=== PATIENT | female | born 1965 | race Caucasian/White ===

== ENCOUNTER 2016-10-20 20:42 | Inpatient (IN) | payer BC, MEDICARE ==
[~2016-10-20] VITALS: Ht 149.9 cm; Wt 57.4 kg
[~2016-10-20 20:42] MED LIST: ACET325T9 PO; ALPR1TAB6 PO; AMLO5TAB2 PO; ASCO100T4 PO; ASCO500T3 PO; ASPI-39 PO; ASPI81TA2 PO; BUPR150T8 PO; CEFP100T PO; CEFP200T PO; CHOL500015 PO; CIPR250T PO; CIPR250T30 PO; CLIN-44 PO; CLON1TAB3 PO; DARB10SY IJ; DEXA4TAB PO; DIAZ5TAB4 PO; DOCU-27 PO; ESCI10TA PO; ESCI20TA PO; FERR-26 PO; FERR325T72 PO; FLUC100T FT; GABA-585 PO; GABA-586 PO; HYDR-2678 PO; LACT1CAP6 PO; LEVE500T56 PO; LIDO30CR TP; LIDO700A4 TD; METH10TA2 PO; METR250T PO; MORP30TA83 PO; MULT-55 PO; OMEP40CA5 PO; ONDA8TAB15 PO; ONDA8TAB9 PO; OXYB10TA PO; OXYC-323 PO; OXYC10TA PO; OXYC10TA32 PO; OXYC5TAB PO; OXYM10TA22 PO; OXYM20TA10 PO; OXYM5TAB18 PO; PRAV40TA2 PO; PROAIR HFA8.5 GM IH; PROAIR HFA8.5 GM INH; PROM25TA10 PO; PROVENTIL HFA6.7 GM IH; SENN-22 PO; SUMA100T4 PO; SUMA4PEN2 SQ; TIOT18CA IH
[2016-10-20 22:20] VITALS: BP 138/78
[2016-10-20] MEDS ORDERED: ALPRAZOLAM 0.5 MG TABLET PO PRN (23:30)
[2016-10-20] MEDS ORDERED: SUMATRIPTAN SUCCINATE 100 MG TABLET. PO PRN (23:30)
[2016-10-21] VITALS (14 sets, daily range): BP systolic 123–146; BP diastolic 70–87
[2016-10-21] MEDS: MORPHINE SULFATE 2 MG/ML DISP.SYRIN. IV PRN ×5 (00:01→19:21)
[2016-10-21] MEDS: ACETAMINOPHEN 325 MG TABLET. PO PRN ×2 (01:30→08:18)
[2016-10-21 03:21] LABS: BASO # 0.1 x10^3/uL (0.0-0.2); BASO % 1 % (0-3); EOS % 1 % (0-3); HEMATOCRIT 14.6 % (36.0-47.0); HEMOGLOBIN 4.9 g/dL (12.0-15.5); LYMPH # 1.1 x10^3/uL (1.0-4.8); LYMPH % 14 % (24-48); MEAN CORPUSCULAR HEMOGLOBIN 33 pg (25-35); MEAN CORPUSCULAR HGB CONC 34 g/dL (31-37); MEAN CORPUSCULAR VOLUME 98 fL (79-100); MONO % 8 % (0-9); NEUT % 76 % (31-73); PLATELET COUNT 77 x10^3/uL (140-400); RED BLOOD COUNT 1.48 x10^6/uL (3.50-5.40); RED CELL DISTRIBUTION WIDTH 18.4 % (11.5-14.5); WHITE BLOOD COUNT 7.8 x10^3/uL (4.0-11.0)
[2016-10-21 03:23] LABS: ALBUMIN 2.9 g/dL (3.4-5.0); CALCIUM 8.7 mg/dL (8.5-10.1); GFR 9.1; PHOSPHORUS 3.3 mg/dL (2.6-4.7); POTASSIUM 3.9 mmol/L (3.5-5.1)
[2016-10-21] MEDS: IPRATRPIUM/ALBUTEROL 0.5/2.5MG 3 ML NEBU. NEB SCH ×4 (07:19→20:15)
[2016-10-21] MEDS: PANTOPRAZOLE 40 MG TABLET. PO SCH (08:18)
[2016-10-21] MEDS: LEVETIRACETAM 500 MG TABLET PO SCH ×2 (08:18→20:07)
[2016-10-21] MEDS: AMLODIPINE BESYLATE 5 MG TABLET PO SCH ×2 (08:19→20:07)
--- NOTE | 2016-10-21 08:49 | PDOC2 ---
CONSULT Date of Consult Date of Consult DATE: 10/21/16 TIME: 08:38 Reason for Consult Reason for Consult: ESRD Referring Physician Referring Physician: Shad Source Source: Chart review, Patient History of Present Illness Reason for Visit: as dictated Past Medical History Cardiovascular: HTN, Hyperlipidemia Pulmonary: COPD CENTRAL NERVOUS SYSTEM: Migraine GI: GERD Heme/Onc: Anemia NOS, Cancer Hepatobiliary: No pertinent hx Psych: Anxiety, Depression Musculoskeletal: Osteoarthritis Renal/: Chronic renal failure Endocrine: Diabetes, Hyperparathyroidism Past Surgical History Past Surgical History: Tonsillectomy, Hysterectomy, Other Family History Family History: Hypertension Social History Quit ALCOHOL: none Drugs: None Lives: with Family Current Medications Current Medications Current Medications Acetaminophen (Tylenol) 650 mg PRN Q6HRS PRN PO MILD PAIN / TEMP Last administered on 10/21/16 08:18; Start 10/20/16 at 23:15 Morphine Sulfate 2 mg PRN Q2HR PRN IV SEVERE PAIN Last administered on 08:18; Start 10/20/16 at 23:15 Albuterol/ Ipratropium (Duoneb) 3 ml RTQID NEB Last administered on 10/21/16 07:19; Start 10/21/16 at 08:00 Ondansetron HCl (Zofran) 4 mg PRN Q6HRS PRN IV NAUSEA/VOMITING; Start 10/20/16 at 23:15 Alprazolam (Xanax) 0.5 mg PRN BID PRN PO ANXIETY / AGITATION; Start 10/20/16 at 23:30 Amlodipine Besylate (Norvasc) 5 mg BID PO Last administered on 10/21/16 08:19 ; Start 10/21/16 at 09:00 Acetaminophen/ Hydrocodone Bitart (Lortab 5/325) 1 tab PRN TID PRN PO MODERATE PAIN; Start 10/20/16 at 23:30 Levetiracetam (Keppra) 500 mg BID PO Last administered on 10/21/16 08:18; Start 10/21/16 at 09:00 Sumatriptan Succinate (Imitrex) 100 mg PRN BID PRN PO MIGRAINE HEADACHE; Start 10/20/16 at 23:30 Pantoprazole Sodium (Protonix) 40 mg DAILYAC PO Last administered on 10/21/16 08:18; Start 10/21/16 at 07:30 Active Scripts Active Keppra (Levetiracetam) 500 Mg Tablet 500 Mg PO BID Reported Amlodipine Besylate 5 Mg Tablet 5 Mg PO BID Lortab 5-325 mg Tablet (Hydrocodone/Acetaminophen) 1 Each Tablet 1 Tab PO PRN TID PRN Aranesp (Darbepoetin Con in Polysorbat) 10 Mcg/0.4 Ml Syringe 60 Mcg IJ WEEKLY Tylenol (Acetaminophen) 325 Mg Tablet 1 Tab PO PRN Q6HRS PRN Alprazolam 1 Mg Tablet 0.5 Tab PO PRN BID PRN Proair Hfa Inhaler (Albuterol Sulfate) 8.5 Gm Hfa.aer.ad 1 Puff INH PRN Q6HRS PRN Omeprazole 40 Mg Capsule.dr 40 Mg PO BID Zofran (Ondansetron Hcl) 8 Mg Tablet 4 Mg PO Sumatriptan Succinate 100 Mg Tablet 100 Mg PO 1-2TABS PO PRN Allergies Allergies: Coded Allergies: Penicillins (Verified Allergy, Severe, Anaphylaxis, tolerates MERREM, ) topiramate (Verified Allergy, Severe, Anaphylaxis, 04/20/16) metoclopramide (Verified Allergy, Intermediate, rash, 04/20/16) prednisone (Verified Allergy, Intermediate, swelling, 04/20/16) tetanus and diphtheria toxoids (Verified Allergy, Intermediate, swelling, 04/20/16) ROS Review of System GEN: no Fevers no Chills + Gen Weakness EYES: no new Visual Complaints ENT: no EN Drainage no Hearing deficiets CVS: no Orthopnea no CP RESP: min Subj SOB Occ RIVERA GI: no Nausea no Vomiting + Diarrhea : no Dysuria no Urgency HEME: no easy bruising no Palp Ly Nodes NEURO no Focal Weakness no Sz PSYCH: no Suicidal Ideation min Depression SKIN: no new Rashes ENDO: no Polyuria or Polydipsia no Hot/Cold Intolerance MU SK: occ Arthraigia occ Myalgia Physical Exam Physical Exam General Appearance: Awake Alert Oriented x 3 In no current Distress Eyes: VIsion Unchanged Conjunctiva Normal EN: No EN Drainage Mucous Memb. moist Neck: no JVD no JVP Supple no Thyromegaly CVS: S1 S2 no Murmur No Gallop No Rub tr Edema Resp: rare Rales occ end exp Rhonchi no Acc. Muscle use GI: BS +ve NO Bruit Non Tender Non Distended : no CVA tenderness; no Suprapubic Tenderness SKIN: no Rashes Breast Exam deferred Mu.Sk: Adequate ROM no Muscle Atrophy Heme: Unable to palpate Obvious LAD no palp Splenomegaly NEURO: decreased Strength in lower ext Cranial Nerves II - XII grossly intact Psych: ? Depressed no Active hallucination Vital Signs Vital Signs Date Time Temp Pulse Resp B/P Pulse Ox O2 Delivery O2 Flow Rate FiO2 10/21/16 08:19 78 133/87 10/21/16 08:18 BiPAP/CPAP 2.0 10/21/16 07:30 98.4 16 95 98.4 Assessment & Plan ESRD: Dialysis as below F 180 NR 3.5 Hrs 3 K 2.5 Ca 140 Na 35 HC03 Qb 350 + Qd 500+ Heparin 0 Units Uf 2- 3 Kgs or to dry weight as tolerated Transfuse 1- 2 Units PRCBC's on HD May give 25-50 gms of 25% Albumin if needed to maintain Hemodynamic stability Treatment plan reviewed and discussed with appraisal analyst Anemia: now s/p BT. start Epogen as ordered Transfuse with next HD as needed. defer w/up and eval to Dr Kulkarni HTN: Current BP meds reviewed. See orders for changes. HypoAlbuminemia - suspect due to underlying Cancer. Encourage PO Protein Diarrhea - defer to Dr Kulkarni Labs Labs Laboratory Tests Test 10/21/16 00:00 White Blood Count 7.8x10^3/uL (4.0-11.0) Red Blood Count 1.48x10^6/uL (3.50-5.40) Hemoglobin 4.9g/dL (12.0-15.5) Hematocrit 14.6% (36.0-47.0) Mean Corpuscular Volume 98fL (79-100) Mean Corpuscular Hemoglobin 33pg (25-35) Mean Corpuscular Hemoglobin Concent 34g/dL (31-37) Red Cell Distribution Width 18.4% (11.5-14.5) Platelet Count 77x10^3/uL (140-400) Neutrophils (%) (Auto) 76% (31-73) Lymphocytes (%) (Auto) 14% (24-48) Monocytes (%) (Auto) 8% (0-9) Eosinophils (%) (Auto) 1% (0-3) Basophils (%) (Auto) 1% (0-3) Neutrophils # (Auto) 5.9x10^3uL (1.8-7.7) Lymphocytes # (Auto) 1.1x10^3/uL (1.0-4.8) Monocytes # (Auto) 0.6x10^3/uL (0.0-1.1) Eosinophils # (Auto) 0.1x10^3/uL (0.0-0.7) Basophils # (Auto) 0.1x10^3/uL (0.0-0.2) Sodium Level 135mmol/L (136-145) Potassium Level 3.9mmol/L (3.5-5.1) Chloride Level 97mmol/L (98-107) Carbon Dioxide Level 32mmol/L (21-32) Anion Gap 6 (6-14) Blood Urea Nitrogen 22mg/dL (7-20) Creatinine 5.0mg/dL (0.6-1.0) Estimated GFR (Cockcroft-Gault) 9.1 Glucose Level 95mg/dL (70-99) Calcium Level 8.7mg/dL (8.5-10.1) Phosphorus Level 3.3mg/dL (2.6-4.7) Albumin 2.9g/dL (3.4-5.0) Laboratory Tests Test 10/21/16 00:00 White Blood Count 7.8x10^3/uL (4.0-11.0) Red Blood Count 1.48x10^6/uL (3.50-5.40) Hemoglobin 4.9g/dL (12.0-15.5) Hematocrit 14.6% (36.0-47.0) Mean Corpuscular Volume 98fL (79-100) Mean Corpuscular Hemoglobin 33pg (25-35) Mean Corpuscular Hemoglobin Concent 34g/dL (31-37) Red Cell Distribution Width 18.4% (11.5-14.5) Platelet Count 77x10^3/uL (140-400) Neutrophils (%) (Auto) 76% (31-73) Lymphocytes (%) (Auto) 14% (24-48) Monocytes (%) (Auto) 8% (0-9) Eosinophils (%) (Auto) 1% (0-3) Basophils (%) (Auto) 1% (0-3) Neutrophils # (Auto) 5.9x10^3uL (1.8-7.7) Lymphocytes # (Auto) 1.1x10^3/uL (1.0-4.8) Monocytes # (Auto) 0.6x10^3/uL (0.0-1.1) Eosinophils # (Auto) 0.1x10^3/uL (0.0-0.7) Basophils # (Auto) 0.1x10^3/uL (0.0-0.2) Sodium Level 135mmol/L (136-145) Potassium Level 3.9mmol/L (3.5-5.1) Chloride Level 97mmol/L (98-107) Carbon Dioxide Level 32mmol/L (21-32) Anion Gap 6 (6-14) Blood Urea Nitrogen 22mg/dL (7-20) Creatinine 5.0mg/dL (0.6-1.0) Estimated GFR (Cockcroft-Gault) 9.1 Glucose Level 95mg/dL (70-99) Calcium Level 8.7mg/dL (8.5-10.1) Phosphorus Level 3.3mg/dL (2.6-4.7) Albumin 2.9g/dL (3.4-5.0) DOMINICK STEINER MD Oct 21, 2016 08:49
[2016-10-21] MEDS ORDERED: IV NORMAL SALINE 1000ML BAG 1,000 ML IV PRN (09:00)
[2016-10-21] MEDS ORDERED: 0.9 % SODIUM CHLORIDE 10 ML DISP.SYRIN. IV PRN ×2 (09:00)
[2016-10-21] MEDS ORDERED: DIALYSIS PATIENT. MC PRN ×2 (13:15)
[2016-10-21] MEDS: ONDANSETRON PF 4 MG/2 ML VIAL. IV PRN (14:09)
[2016-10-21 15:17] LABS: HEMOGLOBIN 8.5 g/dL (12.0-15.5); RED BLOOD COUNT 2.68 x10^6/uL (3.50-5.40); WHITE BLOOD COUNT 8.1 x10^3/uL (4.0-11.0)
[2016-10-21] MEDS: HYDROCODONE/APAP 5/325MG TABLET. PO PRN ×2 (15:20→20:07)
--- NOTE | 2016-10-21 17:31 | HP ---
ADMIT DATE: 10/21/2016 CHIEF COMPLAINT: Anemia. HISTORY OF PRESENT ILLNESS: The patient is a 50-year-old woman with metastatic small cell lung carcinoma, end-stage renal disease, who was found with a severe anemia. She is admitted for a transfusion along with dialysis. The patient relates that she did feel kind of weak, although she has not noticed any significant difference from baseline. Denies any shortness of breath or chest pain. She does have mild chronic headaches, currently also has mild nausea after receiving morphine just a couple of minutes ago. PAST MEDICAL HISTORY: Small cell lung carcinoma, end-stage renal disease on dialysis, anemia, diabetes mellitus, seizures. FAMILY HISTORY: Noncontributory. SOCIAL HISTORY: Currently at home with hospice. No ongoing toxic habits. ALLERGIES: PENICILLINS, METOCLOPRAMIDE, PREDNISONE, TETANUS, DIPHTHERIA TOXOIDS and TOPIRAMATE. MEDICATIONS: MAR reconciled with home medications. REVIEW OF SYSTEMS: Essentially positive as per HPI, generalized weakness. PHYSICAL EXAMINATION: VITAL SIGNS: From today show a blood pressure of 130/74, heart rate of 76, respiratory rate of 20. She is afebrile. GENERAL: This is a 50-year-old woman, alert and oriented, no acute distress. HEENT: Shows no scleral icterus. NECK: Supple. LUNGS: Clear to auscultation. HEART: Regular rate and rhythm. ABDOMEN: Positive bowel sounds, soft, nontender. EXTREMITIES: Show no edema. LABORATORY DATA: From today show a WBC of 7.8, hemoglobin 4.9 and platelets of 77. Repeat CBC is pending. Chemistries with a BUN and creatinine of 22 and 5, essentially normal electrolytes, albumin at 2.9. ASSESSMENT AND PLAN: The patient is a 50-year-old woman with nonsmall cell lung carcinoma, stage IV, as well as end-stage renal disease who presented with severe anemia, probably related to renal failure as well as history of chemo and radiation. She did receive PRBC x 2 with dialysis. A repeat CBC is pending. With everything else being fairly stable, we will plan on discharge in early a.m. DEWAYNE BACON MD DR: BRENDAN/shira JOB#: [id number] / [id number] PHILIP Olivo MD MTDD
--- NOTE | 2016-10-21 23:32 | CONS ---
DATE OF CONSULTATION: PRIMARY PHYSICIAN: Dr. Kulkarni. REASON FOR CONSULTATION: ESRD dialysis. HISTORY OF PRESENT ILLNESS: The patient is a pleasant 50-year-old female who unfortunately has metastatic small cell lung cancer. She had routine labs done at the dialysis unit yesterday and was noted to have a very low hemoglobin and hence was summoned today to ER. Labs available to me from this morning shows hemoglobin of 4.9. She did receive 1 unit of blood overnight for the same. Today, is her regular dialysis day and we were asked to see her for the same. She claims she is feeling fine. She was noted to have slightly low albumin level, platelets are also low. She was feeling tired, but feels better after one unit of packed RBCs. We were unable to find an obvious source of blood loss per patient including during her dialysis. She claims she has been more regular with her dialysis. She, however, does sign off early at times. In this setting, she was admitted to the hospital. We will arrange for dialysis and blood transfusion. DOMINICK STEINER MD DR: AMIE/shira JOB#: [id number] / [id number]
[2016-10-22 00:14] LABS: HEP B SURFACE ABDY Reactive (.)
[2016-10-22 03:00] VITALS: BP 143/85
[2016-10-22] MEDS: MORPHINE SULFATE 2 MG/ML DISP.SYRIN. IV PRN ×2 (03:31→08:35)
[2016-10-22 07:00] VITALS: BP_SYST 102; BP_SYST 123; BP_DIAS 49; BP_DIAS 77
[2016-10-22] MEDS: IPRATRPIUM/ALBUTEROL 0.5/2.5MG 3 ML NEBU. NEB SCH ×3 (07:42→15:20)
[2016-10-22] MEDS: PANTOPRAZOLE 40 MG TABLET. PO SCH (08:22)
[2016-10-22] MEDS: LEVETIRACETAM 500 MG TABLET PO SCH (08:23)
[2016-10-22] MEDS: AMLODIPINE BESYLATE 5 MG TABLET PO SCH (08:36)
--- NOTE | 2016-10-22 09:18 | PDOC ---
SUBJECTIVE ROS ESRD Doign and feeling OK overall CVS: no Orthopnea, no CP RESP: min SOB, + RIVERA vero without NCO2 GI: no Nausea, no Vomiting : no Dysuria, no Urgency OBJECTIVE Vital Signs Vital Signs Date Time Temp Pulse Resp B/P Pulse Ox O2 Delivery O2 Flow Rate FiO2 10/22/16 08:36 89 123/77 10/22/16 08:35 99 Nasal Cannula 2.0 10/22/16 07:00 98.4 20 98.4 I & 0 Intake and Output 10/22/16 07:00 Intake Total 900 ml Output Total 700 ml Balance 200 ml Intake Oral 700 ml Blood Product IV Normal Saline Flush 200 ml Output Urine Total 700 ml PHYSICAL EXAM Physical Exam Eyes: VIsion Unchanged Conjunctiva Normal EN: No EN Drainage Mucous Memb. moist Neck: no JVD no JVP Supple no Thyromegaly CVS: S1 S2 no Murmur No Gallop No Rub tr Edema Resp: rare Rales occ end exp Rhonchi no Acc. Muscle use GI: BS +ve NO Bruit Non Tender Non Distended : no CVA tenderness; no Suprapubic Tenderness Assessment & Plan ESRD: Current fluid and E-lyte status does not necessitate emergent need for dialysis. Will re-evaluate for dialysis in the am and continue on MWF schedule. Subj SOB - no t sure if this is due to Fluid or underlying Sm Cell CA - IV lasix x1 to see if it helps Anemia: now s/p BT. start Epogen as ordered Transfuse with next HD as needed. defer w/up and eval to Dr Kulkarni HTN: Current BP meds reviewed. See orders for changes. HypoAlbuminemia - suspect due to underlying Cancer. Encourage PO Protein Diarrhea - defer to Dr Kulkarni COMMENT/RELEVANT DATA Meds Current Medications Medications (Trade) Dose Ordered Sig/Audrey Start Time Stop Time Status Last Admin Dose Admin Acetaminophen (Tylenol) 650 mg PRN Q6HRS PRN 10/20/16 23:15 10/21/16 08:18 650 MG Acetaminophen/ Hydrocodone Bitart (Lortab 5/325) 1 tab PRN TID PRN 10/20/16 23:30 10/21/16 20:07 1 TAB Albuterol/ Ipratropium (Duoneb) 3 ml RTQID 10/21/16 08:00 10/22/16 07:42 3 ML Alprazolam (Xanax) 0.5 mg PRN BID PRN 10/20/16 23:30 Amlodipine Besylate (Norvasc) 5 mg BID 10/21/16 09:00 10/22/16 08:36 5 MG Info (PHARMACY MONITORING -- do not chart) 1 each PRN DAILY PRN 10/21/16 13:15 UNV Levetiracetam (Keppra) 500 mg BID 10/21/16 09:00 10/22/16 08:23 500 MG Morphine Sulfate 2 mg PRN Q2HR PRN 10/20/16 23:15 10/22/16 08:35 2 MG Ondansetron HCl (Zofran) 4 mg PRN Q6HRS PRN 10/20/16 23:15 10/21/16 14:09 4 MG Pantoprazole Sodium 40 mg 40 mg DAILYAC 10/21/16 07:30 10/22/16 08:22 40 MG Sodium Chloride (Iv Sodium Chloride 0.9% 1000ml Bag) 1,000 ml @ 1,000 mls/hr Q1H PRN 10/21/16 09:00 10/21/16 17:59 DC Sodium Chloride (Normal Saline Flush) 10 ml 1X PRN PRN 10/21/16 09:00 10/21/16 18:00 DC Sumatriptan Succinate (Imitrex) 100 mg PRN BID PRN 10/20/16 23:30 Lab Laboratory Tests Test 10/21/16 13:45 10/21/16 15:10 Hepatitis B Surface Antigen Negative (Negative) Hepatitis B Surface Antibody Reactive (.) White Blood Count 8.1x10^3/uL (4.0-11.0) Red Blood Count 2.68x10^6/uL (3.50-5.40) Hemoglobin 8.5g/dL (12.0-15.5) Hematocrit 24.0% (36.0-47.0) Mean Corpuscular Volume 90fL (79-100) Mean Corpuscular Hemoglobin 32pg (25-35) Mean Corpuscular Hemoglobin Concent 35g/dL (31-37) Red Cell Distribution Width 20.0% (11.5-14.5) Platelet Count 98x10^3/uL (140-400) DOMINICK STEINER MD Oct 22, 2016 09:18
[2016-10-22] MEDS: ONDANSETRON PF 4 MG/2 ML VIAL. IV PRN (10:54)
--- NOTE | 2016-10-22 11:20 | DISCH ---
DISCHARGE INSTRUCTIONS Condition on Discharge Condition on Discharge: Stable Activity After Discharge Activity Instructions for Disc: Resume previous activity Diet after Discharge Diet after Discharge: Renal Dialysis Additional Diet Restrictions: high protein Contacting the DRHeidi after DC Call your doctor for: Concerns you may have Follow-Up Follow up with: HD in the morning DEWAYNE BACON MD Oct 22, 2016 11:20
[2016-10-22] MEDS ORDERED: HYDR-2678 PO (11:23)
[2016-10-22] MEDS ORDERED: FENT1PAT17 TP (11:23)
[2016-10-22] MEDS ORDERED: GUAIFENESIN/CODEINE 100mg/10mg 5 ML LIQUID. PO ONE (11:45)
[2016-10-22 11:48] VITALS: BP 121/69
[2016-10-22] MEDS: HYDROCODONE/APAP 5/325MG TABLET. PO PRN (11:51)
[2016-10-22] MEDS ORDERED: GUAI473L15 PO (11:55)
[2016-10-22] MEDS ORDERED: FUROSEMIDE 40 MG/4 ML VIAL IVP ONE ×2 (12:00)
[2016-10-22] MEDS: ACETAMINOPHEN 325 MG TABLET. PO PRN (15:32)
[2016-10-22 15:36] VITALS: BP 126/71
[2016-10-22] MEDS ORDERED: HEPARIN PF 500 UNIT/5 ML DISP.SYRIN. IV ONE (15:45)
--- NOTE | 2016-10-22 20:34 | DS ---
DATE OF DISCHARGE: 10/22/2016 CHIEF COMPLAINT: Severe symptomatic anemia, end-stage renal disease, stage IV lung cancer. HOSPITAL COURSE: The patient is a 50-year-old woman with metastatic small cell lung carcinoma, end-stage renal disease, who was found at dialysis to have severe anemia of 5 with significant shortness of breath. She was therefore admitted to receive a transfusion along with dialysis. The patient underwent planned transfusion and tolerated without any problems. She was observed and with repeat hemoglobin showing significant increase to 8.4, the patient was once again discharged to home with home care. PHYSICAL EXAMINATION: VITAL SIGNS: Showed a blood pressure of 126/71, heart rate of 89, respiratory rate of 20. She is afebrile. GENERAL: This is a well nourished 50-year-old woman, alert and oriented, in no acute distress. HEENT: Shows no scleral icterus. NECK: Supple. LUNGS: Clear bilaterally. HEART: Regular rate and rhythm. ABDOMEN: Positive bowel sounds. EXTREMITIES: Show no edema. DISCHARGE DISPOSITION: To home. DISCHARGE CONDITION: Improved. DISCHARGE DIAGNOSES: Symptomatic anemia, end-stage renal disease, small cell lung carcinoma stage IV. DISCHARGE MEDICATIONS: Please refer to MAR. DISCHARGE INSTRUCTIONS: The patient will continue to be followed by home healthcare. She will follow up with dialysis as previously arranged. DEWAYNE BACON MD DR: BRENDAN/nts JOB#: [id number] / [id number] PHILIP Olivo MD
== END 2016-10-22 19:32 | disposition home health service (06) | DRG 811 ==
LOC: 5 NORTH 22:26
PROVIDERS: ADMIT Internal Medicine; ATTEND Internal Medicine
PROC: 5A1D60Z (ICD-10-PCS; principal; 2016-10-21)
PROC: 30233N1 Transfusion of Nonautologous Red Blood Cells into Peripheral Vein, Percutaneous Approach (ICD-10-PCS; 2016-10-21)
DX: D64.9 Anemia, unspecified (principal); N18.6 End stage renal disease; I12.0 Hypertensive chronic kidney disease with stage 5 chronic kidney disease or end stage renal disease; C34.90 Malignant neoplasm of unspecified part of unspecified bronchus or lung; J44.9 Chronic obstructive pulmonary disease, unspecified; E11.22 Type 2 diabetes mellitus with diabetic chronic kidney disease; Z92.21 Personal history of antineoplastic chemotherapy; Z99.2 Dependence on renal dialysis; Z82.49 Family history of ischemic heart disease and other diseases of the circulatory system; K21.9 Gastro-esophageal reflux disease without esophagitis; M19.90 Unspecified osteoarthritis, unspecified site
CPT/HCPCS: 36415; 80069; 85027; 86706; 86850; 86900; 86901; 86920; 87340; 87341; 94250; 94640; 94760; J1940; J2270; J2405; J7620; P9016

== ENCOUNTER 2016-12-07 06:55 | Inpatient (IN) | payer BC, MEDICARE ==
[~2016-12-07] VITALS: Ht 149.9 cm; Wt 49.9 kg
[2016-12-07] VITALS (16 sets, daily range): BP systolic 147–180; BP diastolic 81–101
[~2016-12-07 06:55] MED LIST changes: +FENT1PAT17 TP; +GUAI473L15 PO; +HYDR-2666 PO; +MAGN400C PO; +PROM12.56 PO
[2016-12-07] MEDS ORDERED: PROC5TAB34 PO (09:38)
[2016-12-07] MEDS ORDERED: MAGNESIUM SULFATE 2GM 50 ML IV PRN (10:45)
--- NOTE | 2016-12-07 10:55 | PDOC2 ---
CONSULT Date of Consult Date of Consult DATE: 12/07/16 TIME: 10:35 Reason for Consult Reason for Consult: ESRD; Hypoxia Referring Physician Referring Physician: Dr Rizo Identification/Chief Complaint Chief Complaint Hypoxia Problems: Source Source: Chart review, Patient History of Present Illness Reason for Visit: as dictated Past Medical History Cardiovascular: HTN, Hyperlipidemia Pulmonary: COPD CENTRAL NERVOUS SYSTEM: Migraine GI: GERD Heme/Onc: Anemia NOS, Cancer Hepatobiliary: No pertinent hx Psych: Anxiety, Depression Musculoskeletal: Osteoarthritis Renal/: Chronic renal failure Endocrine: Diabetes, Hyperparathyroidism Past Surgical History Past Surgical History: Tonsillectomy, Hysterectomy, Other Family History Family History: Hypertension, Family History Unknown Social History ALCOHOL: none Drugs: None Lives: with Family Current Medications Current Medications Active Scripts Active FENTANYL 50mcg/hr (Fentanyl) 1 Each Patch.td72 1 Patch TP Q3DAYS Lortab 5-325 mg Tablet (Hydrocodone/Acetaminophen) 1 Each Tablet 1 Tab PO Q4HRS PRN Alprazolam 1 Mg Tablet 0.5 Tab PO PRN BID PRN Guaifenesin Ac Cough Syrup (Guaifenesin/Codeine Phosphate) 473 Ml Liquid 5 Ml PO Q4HRS Keppra (Levetiracetam) 500 Mg Tablet 500 Mg PO BID Reported Compazine (Prochlorperazine Maleate) 5 Mg Tablet 5 Mg PO Magnesium (Magnesium Oxide) 400 Mg Capsule 1 Cap PO DAILY Proair Hfa Inhaler (Albuterol Sulfate) 8.5 Gm Hfa.aer.ad 1 Puff INH PRN Q6HRS PRN Zofran (Ondansetron Hcl) 8 Mg Tablet 4 Mg PO Allergies Allergies: Coded Allergies: Penicillins (Verified Allergy, Severe, Anaphylaxis, tolerates MERREM, ) topiramate (Verified Allergy, Severe, Anaphylaxis, 04/20/16) metoclopramide (Verified Allergy, Intermediate, rash, 04/20/16) prednisone (Verified Allergy, Intermediate, swelling, 04/20/16) tetanus and diphtheria toxoids (Verified Allergy, Intermediate, swelling, 04/20/16) ROS Review of System GEN: no Fevers no Chills EYES: no new Visual Complaints ENT: no EN Drainage no Hearing deficiets CVS: no Orthopnea no CP RESP: + SOB occ RIVERA GI: + Nausea no Vomiting + diarrhea x 1 this am : no Dysuria no Urgency HEME: no easy bruising no Palp Ly Nodes NEURO no Focal Weakness no Sz PSYCH: no Suicidal Ideation ? some Depression SKIN: no Rashes ENDO: no Polyuria or Polydipsia no Hot/Cold Intolerance MU SK: ch Arthraigia min Myalgia Physical Exam Physical Exam General Appearance: Awake on BiPAP; Alert Oriented x 2-3 In no Distress Eyes: VIsion Unchanged Conjunctiva Normal EN: No EN Drainage Mucous Memb. dryish on bipap Neck: no JVD + JVP Supple no Thyromegaly CVS: S1 S2 ? Murmur No Gallop No Rub no Edema Resp: levon Rales no Rhonchi no Acc. Muscle use GI: BAS +ve NO Bruit Non Tender Non Distended : no CVA tenderness; no Suprapubic Tenderness SKIN: no Rashes Breast Exam deferred Mu.Sk: Adequate ROM min Muscle Atrophy Heme: Unable to palpate Obvious LAD no palp Splenomegaly NEURO: Good Strength and Tone in ext Cranial Nerves unabel to assess due to bipap Psych: + Depressed no Active hallucination Vital Signs Vital Signs Date Time Temp Pulse Resp B/P Pulse Ox O2 Delivery O2 Flow Rate FiO2 12/07/16 10:09 99 22 147/81 98 BiPAP/CPAP 12/07/16 08:30 98.1 98.1 Assessment & Plan ESRD: Dialysis as below F 180 NR 3.5 Hrs 3 K 2.5 Ca 140 Na 40 HC03 Qb 350 + Qd 500+ Heparin 0 Units Uf 3-4 Kgs as tolerated May give 25-50 gms of 25% Albumin if needed to maintain Hemodynamic stability Treatment plan reviewed and discussed with director prospect resp failure with hypoxia - Uf with HD and reval - ? some due to lung Mass too. defer management fo Dr Rebolledo pulthee edema on CXR from [facility] - probably explains hypoxia - UF with HD and reval Anemia of CKD - Epogen as ordered; Transfuse with HD as needed. May be contributing to some SOB too HTN: (reval after Fluid status ooptimization; Current BP meds reviewed. See orders for changes. [facility]: follow trend and adjust bidner regimen Discussed Plan of Care and prognosis etc. at length with family (); dr rizo and Dr Rebolledo Labs Labs none available today DOMINICK STEINER MD Dec 07, 2016 10:54
--- NOTE | 2016-12-07 10:59 | PDOC ---
Provider Note Provider Note dictated RENETTA MAJOR MD Dec 07, 2016 10:59
[2016-12-07] MEDS ORDERED: ESCI10TA PO (11:26)
[2016-12-07] MEDS ORDERED: DIPH1TAB PO (11:26)
[2016-12-07] MEDS ORDERED: OXYB5TAB PO (11:26)
[2016-12-07 13:00] LABS: FIO2 ABG 35; HCO3 ABG 25 mmol/L (21-28); PCO2 ABG 53 mmHg (35-46); PO2 ABG 107 mmHg (75-108); SAT O2 ABG 97 % (92-99)
[2016-12-07] MEDS ORDERED: DIALYSIS PATIENT. MC PRN ×2 (13:45)
[2016-12-07] MEDS ORDERED: PROCHLORPERAZINE 5 MG TABLET. PO PRN (15:00)
[2016-12-07] MEDS: HYDROCODONE/APAP 5/325MG TABLET. PO PRN ×2 (15:01→21:12)
--- NOTE | 2016-12-07 16:31 | CONS ---
DATE OF CONSULTATION: ATTENDING PHYSICIAN: ____. REASON FOR CONSULTATION: Respiratory failure. HISTORY OF PRESENT ILLNESS: The patient is very well known to me. She is a 51-year-old female, who has a history of metastatic small cell lung cancer with mets to the brain. She had initial response to chemo and radiation. On the CAT scans done on 11/04/2016, there is recurrent mass in the left lower lobe. There is also new subcarinal adenopathy on a metastatic bases and new brain metastasis. She was having dialysis at an outside facility where she was noted to be in respiratory distress and also had a low blood pressure. As a result, she was sent to [facility], where she was placed on BiPAP. Her stated that she has been on home hospice. She was brought into the hospital where an arterial blood gases revealed a pH of 7.29 with a pCO2 of 52 and a pO2 of 117 on 35% FiO2. The patient is arousable, following commands, but appears to weak. No obvious respiratory distress. I have reviewed her chest x-ray. There is overall mild interstitial infiltrates. There is improved aeration in the right base and slight increased effusion in the left base. Consultation requested for further evaluation and management. PAST MEDICAL HISTORY: History of chronic respiratory failure on 5 liters on a 24 hr bases, history of underlying COPD, history of small cell cancer with brain metastasis, status post chemo and radiation and now with relapse. PAST SURGICAL HISTORY: No recent surgery. REVIEW OF SYSTEMS: Limited, but 10-point system was obtained. Pertinent positives discussed in my history of present illness, otherwise noncontributory. SOCIAL HISTORY: Has a long history of tobacco use, but quit at the time of diagnosis of cancer. PHYSICAL EXAMINATION: GENERAL: She is arousable, but appears to weak. VITAL SIGNS: Blood pressure 147/81, afebrile, pulse ox is 99% on BiPAP. HEENT: Sclerae nonicteric. NECK: Supple. LUNGS: Diminished breath sounds. CARDIOVASCULAR: Regular rate and rhythm. ABDOMEN: Soft, nontender. EXTREMITIES: With trace pitting edema. LABORATORY DATA: From [facility] were reviewed including ABGs. Chest x-ray was reviewed. IMPRESSION: 1. Ebope-mc-qodumhu hypercapnic respiratory failure secondary to chronic obstructive pulmonary disease exacerbation and mild congestive heart failure. 2. Hypotension noticed during dialysis, now resolved. 3. History of small cell lung cancer, status post chemoradiation. Now with recurrent cancer in the lung along with mediastinal adenopathy and brain metastasis. Not on any treatment. 4. End-stage renal disease, on hemodialysis. RECOMMENDATIONS: 1. We will follow ABGs and if acidosis improved, then we will discontinue BiPAP. 2. Discussed with the at the bedside about advanced directives and he agrees for the full DNR/DNI. We will change that order. 3. Follow chest x-ray as needed. 4. Hemodialysis per renal recommendations. 5. Recommended to discharge to back to home hospice, once clinically improved. Discussed with RN and RT. Critical care time 37 minutes. RENETTA MAJOR MD DR: JODI/nts JOB#: [id number] / [id number] MELISSA
--- NOTE | 2016-12-07 16:35 | PDOC1 ---
History and Physical Date of Admission Date of Admission DATE: 12/07/16 TIME: 16:35 Identification/Chief Complaint Chief Complaint dyspnea, weakness Source Source: Caregiver, Chart review, Patient (minimal) History of Present Illness History of Present Illness pt was admitted here 11/03 to 11/09 for similar, sepsis, aspiration Pneumonia transferred overnight from [place], acute worsening dyspnea anemia reported on labs, CXR showed congestion, she was due to HD today renal and PULM consulted, Past Medical History Cardiovascular: HTN, Hyperlipidemia Pulmonary: COPD CENTRAL NERVOUS SYSTEM: Migraine GI: GERD Heme/Onc: Anemia NOS, Cancer Hepatobiliary: No pertinent hx Psych: Anxiety, Depression Musculoskeletal: Osteoarthritis Renal/: Chronic renal failure Endocrine: Diabetes, Hyperparathyroidism Past Surgical History Past Surgical History: Tonsillectomy, Hysterectomy, Other Family History Family History: Hypertension, Family History Unknown Social History Smoke: No ALCOHOL: none Drugs: None Current Medications Current Medications Current Medications Magnesium Sulfate/ Dextrose (Magnesium Sulfate PREMIX 2GM) 50 ml @ 25 mls/hr PRN DAILY PRN IV for Mag < 1.7 on am labs; Start 12/07/16 at 10:45 Info (PHARMACY MONITORING -- do not chart) 1 each PRN DAILY PRN MC SEE COMMENTS ; Start 12/07/16 at 13:45 Info (PHARMACY MONITORING -- do not chart) 1 each PRN DAILY PRN MC SEE COMMENTS ; Start 12/07/16 at 13:45; Status UNV Alprazolam (Xanax) 1 mg PRN BID PRN PO ANXIETY / AGITATION; Start 12/07/16 at 15 :00 Escitalopram Oxalate (Lexapro) 10 mg DAILY PO ; Start 12/08/16 at 09:00 Acetaminophen/ Hydrocodone Bitart (Lortab 5/325) 1 tab PRN Q4HRS PRN PO PAIN Last administered on 12/07/16t 15:01; Start 12/07/16 at 15:00 Levetiracetam (Keppra) 500 mg BID PO ; Start 12/07/16 at 21:00 Prochlorperazine Maleate (Compazine) 5 mg PRN Q6HRS PRN PO NAUSEA/VOMITING; Start 12/07/16 at 15:00 Magnesium Oxide (Magnesium Oxide) 400 mg DAILY PO ; Start 12/08/16 at 09:00 Oxybutynin Chloride (Ditropan) 2.5 mg BID PO ; Start 12/07/16 at 21:00 Active Scripts Active FENTANYL 50mcg/hr (Fentanyl) 1 Each Patch.td72 1 Patch TP Q3DAYS Lortab 5-325 mg Tablet (Hydrocodone/Acetaminophen) 1 Each Tablet 1 Tab PO Q4HRS PRN Alprazolam 1 Mg Tablet 0.5 Tab PO PRN BID PRN Guaifenesin Ac Cough Syrup (Guaifenesin/Codeine Phosphate) 473 Ml Liquid 5 Ml PO Q4HRS Keppra (Levetiracetam) 500 Mg Tablet 500 Mg PO BID Reported Lomotil Tablet (Diphenoxylate Hcl/Atropine) 1 Each Tablet 1 Each PO Oxybutynin Chloride Er (Oxybutynin Chloride) 5 Mg Tab.er.24 1 Tab PO DAILY Escitalopram Oxalate 10 Mg Tablet 1 Tab PO DAILY Compazine (Prochlorperazine Maleate) 5 Mg Tablet 5 Mg PO Magnesium (Magnesium Oxide) 400 Mg Capsule 1 Cap PO DAILY Proair Hfa Inhaler (Albuterol Sulfate) 8.5 Gm Hfa.aer.ad 1 Puff INH PRN Q6HRS PRN Zofran (Ondansetron Hcl) 8 Mg Tablet 4 Mg PO Allergies Allergies: Coded Allergies: Penicillins (Verified Allergy, Severe, Anaphylaxis, tolerates MERREM, ) topiramate (Verified Allergy, Severe, Anaphylaxis, 04/20/16) metoclopramide (Verified Allergy, Intermediate, rash, 04/20/16) prednisone (Verified Allergy, Intermediate, swelling, 04/20/16) tetanus and diphtheria toxoids (Verified Allergy, Intermediate, swelling, 04/20/16) ROS Review of System unable to fully review, pt on Bipap, and in distress, some confusion, assist General: YES: Chills, Fatigue, Malaise PSYCHOLOGICAL ROS: YES: Anxiety Respiratory: YES: Cough, SOB with excertion, Shortness of breath Genitourinary: No , No , No , No , No , No , No , No Discharge, No Dysuria, No Flank Pain, No Frequency, No Hematuria, No Incontinence, No Other, No Pain, No Retention, No Urgency Musculoskeletal: Yes Joint Pain Neurological: Yes Confusion, No Behavorial Changes, No Bowel/Bladder ControlChng, No Dizziness, No Gait Disturbance, No Headaches, No Impaired Coord/balance, No Memory Loss, No Numbness/Tingling, No Other, No Seizures, No Speech Problems, No Tremors, No Visual Changes, No Weakness Physical Exam General: Alert, moderate distress, severe distress HEENT: Atraumatic, PERRLA, Other (dry OP) Lungs: Clear to auscultation Heart: no murmurs Abdomen: Normal bowel sounds, Soft Extremities: No clubbing, No edema Skin: No significant lesion Neuro: Sensation intact, Other Psych/Mental Status: Other (distress,. confused) Vitals Vitals Vital Signs Date Time Temp Pulse Resp B/P Pulse Ox O2 Delivery O2 Flow Rate FiO2 12/07/16 15:34 98 16 180/90 100 Nasal Cannula 5.0 12/07/16 15:00 98.1 98.1 Labs Labs Laboratory Tests Test 12/07/16 12:10 O2 Saturation 97% (92-99) Arterial Blood pH 7.30 (7.35-7.45) Arterial Blood pCO2 at Patient Temp 53mmHg (35-46) Arterial Blood pO2 at Patient Temp 107mmHg (75-108) Arterial Blood HCO3 25mmol/L (21-28) Arterial Blood Base Excess -1mmol/L (-3-3) FiO2 35 Laboratory Tests Test 12/07/16 12:10 O2 Saturation 97% (92-99) Arterial Blood pH 7.30 (7.35-7.45) Arterial Blood pCO2 at Patient Temp 53mmHg (35-46) Arterial Blood pO2 at Patient Temp 107mmHg (75-108) Arterial Blood HCO3 25mmol/L (21-28) Arterial Blood Base Excess -1mmol/L (-3-3) FiO2 35 VTE Prophylaxis Ordered VTE Prophylaxis Devices: Yes VTE Pharmacological Prophylaxi: Yes Assessment/Plan Assessment/Plan NA 131 K 4.8, Cl 102, gap 10 BUN 34, Cr. 5.6 WBC 5.9, Hgb 6.1 plt 153 Acute hypercapneic and hypoxic respiratory failure on chronic resp insufficiency acute resp acidosis, Encephalopathy: acute metabolic CHF, fluid overload, renal following, try HD today anemia of CKD and disease, ESRD Stage IV SCLC, metastatic: seuzure d/o since brain mets. admitted to ICU on bipap HD today will transfuse Palliative care had discussed one month ago pt DNR was not ready for hospice previously ICU admit 35min ZBIGNIEW BRONSON MD Dec 07, 2016 16:35
[2016-12-07] MEDS: GUAIFENESIN/CODEINE 100mg/10mg 5 ML LIQUID. PO PRN (21:11)
[2016-12-07] MEDS: ALPRAZOLAM 1 MG TABLET PO PRN (21:12)
[2016-12-07] MEDS: LEVETIRACETAM 500 MG TABLET PO SCH (21:12)
[2016-12-07] MEDS: OXYBUTYNIN CHLORIDE 5 MG TABLET PO SCH (21:12)
[2016-12-08] VITALS (13 sets, daily range): BP systolic 135–197; BP diastolic 83–112
--- NOTE | 2016-12-08 03:48 | CONS ---
DATE OF CONSULTATION: REASON FOR CONSULTATION: ESRD dialysis, hypoxemia. HISTORY OF PRESENT ILLNESS: The patient is a pleasant 51-year-old female who I followed for her ESRD needs. She has pretty much monthly hospital admissions. It appears that she has had some difficulty with p.o. intake, probably associated with her underlying metastatic lung cancer. thinks she has been drinking a lot of water, but has been achieving dry weight per se. She presented to outpatient dialysis unit with increasing shortness of breath. She did have her full dialysis for last 3 days. She was sent from the outpatient dialysis unit to [facility] due to worsening hypoxemia. At [facility], she was noted to have pulmonary edema on her chest x-ray and was transferred here to [facility] where she is in the ICU on a BiPAP, reviewed chest x-ray report on the ER note and will proceed with dialysis for fluid removal. She may need challenge of her dry weight. For rest of details, see electronic records. DOMINICK STEINER MD DR: AMIE/shira JOB#: [id number] / [id number]
[2016-12-08] MEDS: GUAIFENESIN/CODEINE 100mg/10mg 5 ML LIQUID. PO PRN ×2 (04:47→17:06)
[2016-12-08 04:52] LABS: CALCIUM 9.4 mg/dL (8.5-10.1); CREATININE 3.7 mg/dL (0.6-1.0); GFR 12.8; PHOSPHORUS 3.9 mg/dL (2.6-4.7); POTASSIUM 4.5 mmol/L (3.5-5.1)
[2016-12-08 04:54] LABS: DIRECT BILIRUBIN 0.2 mg/dL (0.0-0.2); TOTAL BILIRUBIN 0.7 mg/dL (0.2-1.0); TOTAL PROTEIN 6.8 g/dL (6.4-8.2)
[2016-12-08] MEDS: ALPRAZOLAM 1 MG TABLET PO PRN ×2 (05:08→21:15)
[2016-12-08] MEDS: HYDROCODONE/APAP 5/325MG TABLET. PO PRN ×2 (05:09→12:09)
[2016-12-08] MEDS ORDERED: IPRATRPIUM/ALBUTEROL 0.5/2.5MG 3 ML NEBU. NEB ONE (05:30)
[2016-12-08] MEDS: LEVETIRACETAM 500 MG TABLET PO SCH ×2 (08:27→21:15)
[2016-12-08] MEDS: OXYBUTYNIN CHLORIDE 5 MG TABLET PO SCH ×2 (08:27→21:15)
[2016-12-08] MEDS ORDERED: MAGNESIUM OXIDE 400 MG TABLET PO SCH (09:00)
[2016-12-08] MEDS ORDERED: ESCITALOPRAM 10 MG TABLET. PO SCH (09:00)
--- NOTE | 2016-12-08 09:53 | PDOC ---
PULMONARY PROGRESS NOTES Subjective feels better off BIPAP Vitals Vital Signs Date Time Temp Pulse Resp B/P Pulse Ox O2 Delivery O2 Flow Rate FiO2 12/08/16 06:07 95 169/92 99 Nasal Cannula 5.0 12/08/16 04:21 98.6 98.6 12/07/16 21:08 24 General: Alert, No acute distress Lungs: Other (decrease bs) Cardiovascular: S1, S2 Abdomen: Soft, Non-tender Neuro Exam: Alert Extremities: No Edema, Other Labs Laboratory Tests Test 12/07/16 10:10 12/07/16 12:10 12/08/16 04:30 Nasal Screen MRSA (PCR) Negative (Negative) O2 Saturation 97% (92-99) Arterial Blood pH 7.30 (7.35-7.45) Arterial Blood pCO2 at Patient Temp 53mmHg (35-46) Arterial Blood pO2 at Patient Temp 107mmHg (75-108) Arterial Blood HCO3 25mmol/L (21-28) Arterial Blood Base Excess -1mmol/L (-3-3) FiO2 35 Hemoglobin 8.7g/dL (12.0-15.5) Sodium Level 137mmol/L (136-145) Potassium Level 4.5mmol/L (3.5-5.1) Chloride Level 96mmol/L (98-107) Carbon Dioxide Level 34mmol/L (21-32) Anion Gap 7 (6-14) Blood Urea Nitrogen 27mg/dL (7-20) Creatinine 3.7mg/dL (0.6-1.0) Estimated GFR (Cockcroft-Gault) 12.8 Glucose Level 96mg/dL (70-99) Calcium Level 9.4mg/dL (8.5-10.1) Phosphorus Level 3.9mg/dL (2.6-4.7) Magnesium Level 1.8mg/dL (1.8-2.4) Total Bilirubin 0.7mg/dL (0.2-1.0) Direct Bilirubin 0.2mg/dL (0.0-0.2) Aspartate Amino Transf (AST/SGOT) 18U/L (15-37) Alanine Aminotransferase (ALT/SGPT) 9U/L (14-59) Alkaline Phosphatase 80U/L (46-116) Total Protein 6.8g/dL (6.4-8.2) Albumin 3.0g/dL (3.4-5.0) Laboratory Tests Test 12/07/16 10:10 12/07/16 12:10 12/08/16 04:30 Nasal Screen MRSA (PCR) Negative (Negative) O2 Saturation 97% (92-99) Arterial Blood pH 7.30 (7.35-7.45) Arterial Blood pCO2 at Patient Temp 53mmHg (35-46) Arterial Blood pO2 at Patient Temp 107mmHg (75-108) Arterial Blood HCO3 25mmol/L (21-28) Arterial Blood Base Excess -1mmol/L (-3-3) FiO2 35 Hemoglobin 8.7g/dL (12.0-15.5) Sodium Level 137mmol/L (136-145) Potassium Level 4.5mmol/L (3.5-5.1) Chloride Level 96mmol/L (98-107) Carbon Dioxide Level 34mmol/L (21-32) Anion Gap 7 (6-14) Blood Urea Nitrogen 27mg/dL (7-20) Creatinine 3.7mg/dL (0.6-1.0) Estimated GFR (Cockcroft-Gault) 12.8 Glucose Level 96mg/dL (70-99) Calcium Level 9.4mg/dL (8.5-10.1) Phosphorus Level 3.9mg/dL (2.6-4.7) Magnesium Level 1.8mg/dL (1.8-2.4) Total Bilirubin 0.7mg/dL (0.2-1.0) Direct Bilirubin 0.2mg/dL (0.0-0.2) Aspartate Amino Transf (AST/SGOT) 18U/L (15-37) Alanine Aminotransferase (ALT/SGPT) 9U/L (14-59) Alkaline Phosphatase 80U/L (46-116) Total Protein 6.8g/dL (6.4-8.2) Albumin 3.0g/dL (3.4-5.0) Medications Active Scripts Medications Dose Route/Sig Days Date Category Lomotil Tablet (Diphenoxylate Hcl/Atropine) 1 Each Tablet 1 Each PO 12/07/16 Reported Oxybutynin Chloride Er (Oxybutynin Chloride) 5 Mg Tab.er.24 1 Tab PO DAILY 12/07/16 Reported Escitalopram Oxalate 10 Mg Tablet 1 Tab PO DAILY 12/07/16 Reported Compazine (Prochlorperazine Maleate) 5 Mg Tablet 5 Mg PO 12/07/16 Reported FENTANYL 50mcg/hr (Fentanyl) 1 Each Patch.td72 1 Patch TP Q3DAYS 11/08/16 Rx Lortab 5-325 mg Tablet (Hydrocodone/Acetaminophen) 1 Each Tablet 1 Tab PO Q4HRS PRN 11/08/16 Rx Alprazolam 1 Mg Tablet 0.5 Tab PO PRN BID PRN 11/08/16 Rx Magnesium (Magnesium Oxide) 400 Mg Capsule 1 Cap PO DAILY 11/03/16 Reported Guaifenesin Ac Cough Syrup (Guaifenesin/Codeine Phosphate) 473 Ml Liquid 5 Ml PO Q4HRS 10/22/16 Rx Keppra (Levetiracetam) 500 Mg Tablet 500 Mg PO BID 08/05/16 Rx Proair Hfa Inhaler (Albuterol Sulfate) 8.5 Gm Hfa.aer.ad 1 Puff INH PRN Q6HRS PRN 04/19/16 Reported Zofran (Ondansetron Hcl) 8 Mg Tablet 4 Mg PO 04/19/16 Reported Impression . 1. [id number] hypercapnic respiratory failure secondary to chronic obstructive pulmonary disease exacerbation and mild congestive heart failure. 2. Hypotension noticed during dialysis, now resolved. 3. History of small cell lung cancer, status post chemoradiation. Now with recurrent cancer in the lung along with mediastinal adenopathy and brain metastasis. Not on any treatment. 4. End-stage renal disease, on hemodialysis. 5. Panic disorder Plan . 1. PRN BiPAP., nasal canula 2. DNR/DNI. 3. Follow chest x-ray as needed. 4. Hemodialysis per renal recommendations. 5. Recommended to discharge to back to home hospice, once clinically improved. Discussed with RN and RT. RENETTA MAJOR MD Dec 08, 2016 09:52
--- NOTE | 2016-12-08 10:43 | PDOC ---
SUBJECTIVE ROS ESRD Feeling much better today CVS: no Orthopnea, no CP RESP: min SOB, ? RIVERA GI: no Nausea, no Vomiting : no Dysuria, no Urgency OBJECTIVE Vital Signs Vital Signs Date Time Temp Pulse Resp B/P Pulse Ox O2 Delivery O2 Flow Rate FiO2 12/08/16 06:07 95 169/92 99 Nasal Cannula 5.0 12/08/16 04:21 98.6 98.6 12/07/16 21:08 24 I & 0 Intake and Output 12/08/16 07:00 Intake Total 400 ml Output Total 520 ml Balance -120 ml Intake Oral 400 ml Output Urine Total 520 ml PHYSICAL EXAM Physical Exam General Appearance: Awake on BiPAP; Alert Oriented x 2-3 In no Distress Eyes: VIsion Unchanged Conjunctiva Normal EN: No EN Drainage Mucous Memb. dryish on bipap Neck: no JVD + JVP Supple no Thyromegaly CVS: S1 S2 ? Murmur No Gallop No Rub no Edema Resp: Few Rales RLL Rhonchi no Acc. Muscle use; dec AE on the Left GI: BS +ve NO Bruit Non Tender Non Distended : no CVA tenderness; no Suprapubic Tenderness Assessment & Plan: ESRD: Dialysis if needed later today depending on CXR. Clinically she is comfortable on 4L NC O2 but had a bout of "Anxiety vs COPD Exac" this am. given Hypotension post HD yest - I feel we have achieved a new dry weight. resp failure with hypoxia - better with Uf onHD - ? some due to lung Mass/ COPD etc too. defer management fo Dr Rebolledo pulthee edema on CXR from [facility] - better UF with HD and reval CXR later today Anemia of CKD - Epogen as ordered; Transfuse with HD as needed. May be contributing to some SOB too HTN currently, but was hypotensive yest ; Current BP meds reviewed. See orders for changes. CHRISTINA/ [facility]: follow trend and adjust binder regimen Discussed Plan of Care and prognosis etc. at length with family () and daughters at bedside. Explained Hospice and course hereafter, Withdrawal of HD has been revisited on multiple occasions in the past COMMENT/RELEVANT DATA Meds Current Medications Medications (Trade) Dose Ordered Sig/Audrey Start Time Stop Time Status Last Admin Dose Admin Acetaminophen/ Hydrocodone Bitart (Lortab 5/325) 1 tab PRN Q4HRS PRN 12/07/16 15:00 12/08/16 05:09 1 TAB Albuterol/ Ipratropium (Duoneb) 3 ml 1X ONCE 12/08/16 05:30 12/08/16 05:31 DC 12/08/16 05:22 3 ML Alprazolam (Xanax) 1 mg PRN BID PRN 12/07/16 15:00 12/08/16 05:08 1 MG Escitalopram Oxalate (Lexapro) 10 mg DAILY 12/08/16 09:00 12/08/16 08:27 10 MG Guaifenesin/ Codeine Phosphate (Robitussin Ac) 5 ml PRN Q6HRS PRN 12/07/16 18:45 12/08/16 04:47 5 ML Info (PHARMACY MONITORING -- do not chart) 1 each PRN DAILY PRN 12/07/16 13:45 UNV Levetiracetam (Keppra) 500 mg BID 12/07/16 21:00 12/08/16 08:27 500 MG Magnesium Oxide (Magnesium Oxide) 400 mg DAILY 12/08/16 09:00 12/08/16 08:27 400 MG Magnesium Sulfate/ Dextrose (Magnesium Sulfate PREMIX 2GM) 50 ml @ 25 mls/hr PRN DAILY PRN 12/07/16 10:45 Oxybutynin Chloride (Ditropan) 2.5 mg BID 12/07/16 21:00 12/08/16 08:27 2.5 MG Prochlorperazine Maleate (Compazine) 5 mg PRN Q6HRS PRN 12/07/16 15:00 Lab Laboratory Tests Test 12/07/16 12:10 12/08/16 04:30 O2 Saturation 97% (92-99) Arterial Blood pH 7.30 (7.35-7.45) Arterial Blood pCO2 at Patient Temp 53mmHg (35-46) Arterial Blood pO2 at Patient Temp 107mmHg (75-108) Arterial Blood HCO3 25mmol/L (21-28) Arterial Blood Base Excess -1mmol/L (-3-3) FiO2 35 Hemoglobin 8.7g/dL (12.0-15.5) Sodium Level 137mmol/L (136-145) Potassium Level 4.5mmol/L (3.5-5.1) Chloride Level 96mmol/L (98-107) Carbon Dioxide Level 34mmol/L (21-32) Anion Gap 7 (6-14) Blood Urea Nitrogen 27mg/dL (7-20) Creatinine 3.7mg/dL (0.6-1.0) Estimated GFR (Cockcroft-Gault) 12.8 Glucose Level 96mg/dL (70-99) Calcium Level 9.4mg/dL (8.5-10.1) Phosphorus Level 3.9mg/dL (2.6-4.7) Magnesium Level 1.8mg/dL (1.8-2.4) Total Bilirubin 0.7mg/dL (0.2-1.0) Direct Bilirubin 0.2mg/dL (0.0-0.2) Aspartate Amino Transf (AST/SGOT) 18U/L (15-37) Alanine Aminotransferase (ALT/SGPT) 9U/L (14-59) Alkaline Phosphatase 80U/L (46-116) Total Protein 6.8g/dL (6.4-8.2) Albumin 3.0g/dL (3.4-5.0) DOMINICK STEINER MD Dec 08, 2016 10:43
--- NOTE | 2016-12-08 12:53 | PDOC ---
PROGRESS NOTES Chief Complaint Chief Complaint Acute on chronic hypercapneic and hypoxic respiratory failure acute resp acidosis, improved Encephalopathy: improved CHF, fluid overload, s/p HD, better anemia of CKD and disease, ESRD Stage IV SCLC, metastatic: seizure d/o since brain mets. History of Present Illness History of Present Illness doing much better today transfer to floor, out of ICU on NC only Vitals Vitals Vital Signs Date Time Temp Pulse Resp B/P Pulse Ox O2 Delivery O2 Flow Rate FiO2 12/08/16 08:00 Nasal Cannula 5.0 12/08/16 06:07 95 169/92 99 12/08/16 04:21 98.6 98.6 12/07/16 21:08 24 Physical Exam General: Alert, No acute distress, severe distress Heart: Regular rate, No murmurs Lungs: Wheezing, Other (decrease bs) Abdomen: Normal bowel sounds, Soft Extremities: No clubbing, No edema Skin: No breakdown, No significant lesion Labs LABS Laboratory Tests Test 12/08/16 04:30 Hemoglobin 8.7g/dL (12.0-15.5) Sodium Level 137mmol/L (136-145) Potassium Level 4.5mmol/L (3.5-5.1) Chloride Level 96mmol/L (98-107) Carbon Dioxide Level 34mmol/L (21-32) Anion Gap 7 (6-14) Blood Urea Nitrogen 27mg/dL (7-20) Creatinine 3.7mg/dL (0.6-1.0) Estimated GFR (Cockcroft-Gault) 12.8 Glucose Level 96mg/dL (70-99) Calcium Level 9.4mg/dL (8.5-10.1) Phosphorus Level 3.9mg/dL (2.6-4.7) Magnesium Level 1.8mg/dL (1.8-2.4) Total Bilirubin 0.7mg/dL (0.2-1.0) Direct Bilirubin 0.2mg/dL (0.0-0.2) Aspartate Amino Transf (AST/SGOT) 18U/L (15-37) Alanine Aminotransferase (ALT/SGPT) 9U/L (14-59) Alkaline Phosphatase 80U/L (46-116) Total Protein 6.8g/dL (6.4-8.2) Albumin 3.0g/dL (3.4-5.0) Assessment and Plan Assessmemt and Plan cont current still wheezing headache tx, resp support Problems: Comment Review of Relevant I have reviewed the following items kymberly (where applicable) has been applied. Labs Laboratory Tests Test 12/07/16 10:10 12/07/16 12:10 12/08/16 04:30 Nasal Screen MRSA (PCR) Negative (Negative) O2 Saturation 97% (92-99) Arterial Blood pH 7.30 (7.35-7.45) Arterial Blood pCO2 at Patient Temp 53mmHg (35-46) Arterial Blood pO2 at Patient Temp 107mmHg (75-108) Arterial Blood HCO3 25mmol/L (21-28) Arterial Blood Base Excess -1mmol/L (-3-3) FiO2 35 Hemoglobin 8.7g/dL (12.0-15.5) Sodium Level 137mmol/L (136-145) Potassium Level 4.5mmol/L (3.5-5.1) Chloride Level 96mmol/L (98-107) Carbon Dioxide Level 34mmol/L (21-32) Anion Gap 7 (6-14) Blood Urea Nitrogen 27mg/dL (7-20) Creatinine 3.7mg/dL (0.6-1.0) Estimated GFR (Cockcroft-Gault) 12.8 Glucose Level 96mg/dL (70-99) Calcium Level 9.4mg/dL (8.5-10.1) Phosphorus Level 3.9mg/dL (2.6-4.7) Magnesium Level 1.8mg/dL (1.8-2.4) Total Bilirubin 0.7mg/dL (0.2-1.0) Direct Bilirubin 0.2mg/dL (0.0-0.2) Aspartate Amino Transf (AST/SGOT) 18U/L (15-37) Alanine Aminotransferase (ALT/SGPT) 9U/L (14-59) Alkaline Phosphatase 80U/L (46-116) Total Protein 6.8g/dL (6.4-8.2) Albumin 3.0g/dL (3.4-5.0) Laboratory Tests Test 12/08/16 04:30 Hemoglobin 8.7g/dL (12.0-15.5) Sodium Level 137mmol/L (136-145) Potassium Level 4.5mmol/L (3.5-5.1) Chloride Level 96mmol/L (98-107) Carbon Dioxide Level 34mmol/L (21-32) Anion Gap 7 (6-14) Blood Urea Nitrogen 27mg/dL (7-20) Creatinine 3.7mg/dL (0.6-1.0) Estimated GFR (Cockcroft-Gault) 12.8 Glucose Level 96mg/dL (70-99) Calcium Level 9.4mg/dL (8.5-10.1) Phosphorus Level 3.9mg/dL (2.6-4.7) Magnesium Level 1.8mg/dL (1.8-2.4) Total Bilirubin 0.7mg/dL (0.2-1.0) Direct Bilirubin 0.2mg/dL (0.0-0.2) Aspartate Amino Transf (AST/SGOT) 18U/L (15-37) Alanine Aminotransferase (ALT/SGPT) 9U/L (14-59) Alkaline Phosphatase 80U/L (46-116) Total Protein 6.8g/dL (6.4-8.2) Albumin 3.0g/dL (3.4-5.0) Medications Current Medications Magnesium Sulfate/ Dextrose (Magnesium Sulfate PREMIX 2GM) 50 ml @ 25 mls/hr PRN DAILY PRN IV for Mag < 1.7 on am labs; Start 12/07/16 at 10:45 Info (PHARMACY MONITORING -- do not chart) 1 each PRN DAILY PRN MC SEE COMMENTS ; Start 12/07/16 at 13:45 Info (PHARMACY MONITORING -- do not chart) 1 each PRN DAILY PRN MC SEE COMMENTS ; Start 12/07/16 at 13:45; Status UNV Alprazolam (Xanax) 1 mg PRN BID PRN PO ANXIETY / AGITATION Last administered on 12/08/16 05:08; Start 12/07/16 at 15:00 Escitalopram Oxalate (Lexapro) 10 mg DAILY PO Last administered on 12/08/16 08: 27; Start 12/08/16 at 09:00 Acetaminophen/ Hydrocodone Bitart (Lortab 5/325) 1 tab PRN Q4HRS PRN PO PAIN Last administered on 12/08/16 12:09; Start 12/07/16 at 15:00 Levetiracetam (Keppra) 500 mg BID PO Last administered on 12/08/16 08:27; Start 12/07/16 at 21:00 Prochlorperazine Maleate (Compazine) 5 mg PRN Q6HRS PRN PO NAUSEA/VOMITING; Start 12/07/16 at 15:00 Magnesium Oxide (Magnesium Oxide) 400 mg DAILY PO Last administered on 08:27; Start 12/08/16 at 09:00 Oxybutynin Chloride (Ditropan) 2.5 mg BID PO Last administered on 12/08/16 08: 27; Start 12/07/16 at 21:00 Guaifenesin/ Codeine Phosphate (Robitussin Ac) 5 ml PRN Q6HRS PRN PO COUGH Last administered on 12/08/16 04:47; Start 12/07/16 at 18:45 Albuterol/ Ipratropium (Duoneb) 3 ml 1X ONCE NEB Last administered on 05:22; Start 12/08/16 at 05:30; Stop 12/08/16 at 05:31; Status DC Acetaminophen (Tylenol) 650 mg PRN Q6HRS PRN PO MILD PAIN / TEMP; Start at 13:00; Status UNV Active Scripts Active FENTANYL 50mcg/hr (Fentanyl) 1 Each Patch.td72 1 Patch TP Q3DAYS Lortab 5-325 mg Tablet (Hydrocodone/Acetaminophen) 1 Each Tablet 1 Tab PO Q4HRS PRN Alprazolam 1 Mg Tablet 0.5 Tab PO PRN BID PRN Guaifenesin Ac Cough Syrup (Guaifenesin/Codeine Phosphate) 473 Ml Liquid 5 Ml PO Q4HRS Keppra (Levetiracetam) 500 Mg Tablet 500 Mg PO BID Reported Lomotil Tablet (Diphenoxylate Hcl/Atropine) 1 Each Tablet 1 Each PO Oxybutynin Chloride Er (Oxybutynin Chloride) 5 Mg Tab.er.24 1 Tab PO DAILY Escitalopram Oxalate 10 Mg Tablet 1 Tab PO DAILY Compazine (Prochlorperazine Maleate) 5 Mg Tablet 5 Mg PO Magnesium (Magnesium Oxide) 400 Mg Capsule 1 Cap PO DAILY Proair Hfa Inhaler (Albuterol Sulfate) 8.5 Gm Hfa.aer.ad 1 Puff INH PRN Q6HRS PRN Zofran (Ondansetron Hcl) 8 Mg Tablet 4 Mg PO Vitals/I & O Vital Sign - Last 24 Hours 12/07/16 12/07/16 12/07/16 12/07/16 12:55 13:00 13:00 13:10 Temp 98.3 98.2 98.2 98.3 98.2 98.2 Pulse 93 98 98 92 Resp 20 B/P 158/91 159/95 171/98 160/95 Pulse Ox 98 O2 Delivery BiPAP/CPAP 12/07/16 12/07/16 12/07/16 12/07/16 13:10 13:15 13:30 13:31 Temp 98.2 98.1 98.3 98.2 98.1 98.3 Pulse 92 90 87 Resp B/P 169/93 163/93 171/98 Pulse Ox 98 O2 Delivery BiPAP/CPAP 12/07/16 12/07/16 12/07/16 12/07/16 14:00 15:00 15:01 15:34 Temp 98.1 98.1 Pulse 98 98 98 Resp 24 24 24 16 B/P 173/100 174/100 180/90 Pulse Ox 98 100 94 100 O2 Delivery BiPAP/CPAP Nasal Cannula BiPAP/CPAP Nasal Cannula O2 Flow Rate 5.0 5.0 12/07/16 12/07/16 12/07/16 12/07/16 16:00 16:01 17:00 18:00 Pulse 103 113 Resp 16 20 16 B/P 180/99 180/85 Pulse Ox 98 95 94 O2 Delivery Nasal Cannula Nasal Cannula Nasal Cannula Nasal Cannula O2 Flow Rate 5.0 5.0 5.0 5.0 12/07/16 12/07/16 12/07/16 12/07/16 20:00 20:00 21:08 22:00 Temp 98.6 98.6 Pulse 100 102 Resp 24 B/P 170/92 166/88 Pulse Ox 100 O2 Delivery Nasal Cannula Nasal Cannula Nasal Cannula O2 Flow Rate 5.0 5.0 5.0 5.0 12/07/16 12/08/16 12/08/16 12/08/16 23:00 00:21 00:21 00:23 Temp 98.8 98.8 Pulse 103 97 B/P 161/94 163/91 Pulse Ox 99 100 O2 Delivery Nasal Cannula Nasal Cannula Nasal Cannula O2 Flow Rate 5.0 5.0 5.0 5.0 12/08/16 12/08/16 12/08/16 12/08/16 01:03 02:17 03:06 04:04 Pulse 96 90 88 B/P 180/105 160/98 158/88 Pulse Ox 98 98 99 O2 Delivery Nasal Cannula Nasal Cannula Nasal Cannula O2 Flow Rate 5.0 5.0 5.0 5.0 12/08/16 12/08/16 12/08/16 12/08/16 04:04 04:21 05:31 05:31 Temp 98.6 98.6 Pulse 120 118 B/P 176/108 197/112 Pulse Ox 95 100 100 O2 Delivery Nasal Cannula BiPAP/CPAP BiPAP/CPAP O2 Flow Rate 5.0 5.0 12/08/16 12/08/16 06:07 08:00 Pulse 95 B/P 169/92 Pulse Ox 99 O2 Delivery Nasal Cannula Nasal Cannula O2 Flow Rate 5.0 5.0 Intake and Output 12/07/16 12/07/16 12/08/16 15:00 23:00 07:00 Intake Total 50 ml 150 ml 200 ml Output Total 200 ml 200 ml 120 ml Balance -150 ml -50 ml 80 ml Nutrition Consultation Dietary Evaluation: Recommendations by RD: Increase Calorie Intake, Protein supplementation Comments: Pt with poor nutritional status, mild protein calorie malnutrition. Per past chart records, pt wt trending down, has lost 38% body wt over the past 7 months. Uses PEG once a week for nutrition, consumes all other food via PO intake. -Rec. give 1/2 carton of Novasource Renal protein supplement via PEG tube if intake is < 50% of meal. (pt cannot tolerate > 1/2 carton at a time) -Rec. continue intermittent PEG TF's at home to prevent further wt loss Expected Outcomes/Goals: meet 75% estimated nutrition needs no further wt loss Interpretation of weight loss: >10% in 6 months Malnutrition Findings: Food and Nutrition Intake (Mod: <75% est energy req 7days Reduced Vp [employer] Strength: N/A Reduced Vp [employer] Strength (Non-Sev: N/A Weight Status: Appropriate Fluid Accumulation (N/A): N/A ZBIGNIEW BRONSON MD Dec 08, 2016 12:53
[2016-12-08] MEDS ORDERED: ACETAMINOPHEN 325 MG TABLET. PO PRN (13:00)
[2016-12-08] MEDS ORDERED: DIPHENOXYLATE/ATROPINE TABLET. PO PRN (14:15)
[2016-12-08] MEDS ORDERED: FENTANYL 50MCG/HR PATCH. TD SCH (15:00)
--- NOTE | 2016-12-08 15:14 | RAD ---
EXAM: Chest 2 views. HISTORY: Congestive heart failure. COMPARISON: 11/03/2016. FINDINGS: Frontal and lateral views of the chest are obtained. A left internal jugular hemodialysis catheter has its tip in the superior cavoatrial junction. A right-sided port catheter has its tip in the superior cavoatrial junction. Postsurgical changes are noted along the left superior hilum. Lumbar instrumented posterior fusion is partially visualized. A gastrostomy catheter is noted. There are small pleural effusions on the left greater than right. Mild basilar interstitial opacities are consistent with mild pulmonary edema. There is a calcified granuloma in the right base. There is no pneumothorax. The heart is not enlarged. IMPRESSION: 1. Mild pulmonary edema. Small pleural effusions on the left greater than right.
[2016-12-08] MEDS: IPRATRPIUM/ALBUTEROL 0.5/2.5MG 3 ML NEBU. NEB SCH ×3 (15:59→22:00)
[2016-12-08] MEDS: BUDESONIDE 0.5 MG/2 ML NEBU NEB SCH (19:56)
[2016-12-09 03:00] VITALS: BP 172/90
[2016-12-09] MEDS: GUAIFENESIN/CODEINE 100mg/10mg 5 ML LIQUID. PO PRN (04:26)
[2016-12-09 07:00] VITALS: BP 151/85
[2016-12-09] MEDS: IPRATRPIUM/ALBUTEROL 0.5/2.5MG 3 ML NEBU. NEB SCH ×2 (07:13→11:42)
[2016-12-09] MEDS: BUDESONIDE 0.5 MG/2 ML NEBU NEB SCH (07:13)
[2016-12-09 08:20] LABS: BASO # 0.1 x10^3/uL (0.0-0.2); BASO % 1 % (0-3); EOS % 3 % (0-3); HEMATOCRIT 26.2 % (36.0-47.0); HEMOGLOBIN 8.7 g/dL (12.0-15.5); LYMPH # 1.3 x10^3/uL (1.0-4.8); LYMPH % 21 % (24-48); MEAN CORPUSCULAR HEMOGLOBIN 32 pg (25-35); MEAN CORPUSCULAR HGB CONC 33 g/dL (31-37); MEAN CORPUSCULAR VOLUME 96 fL (79-100); MONO % 9 % (0-9); NEUT % 66 % (31-73); PLATELET COUNT 123 x10^3/uL (140-400); RED BLOOD COUNT 2.73 x10^6/uL (3.50-5.40); RED CELL DISTRIBUTION WIDTH 18.7 % (11.5-14.5); WHITE BLOOD COUNT 6.1 x10^3/uL (4.0-11.0)
[2016-12-09 08:47] LABS: CALCIUM 9.5 mg/dL (8.5-10.1); CREATININE 4.9 mg/dL (0.6-1.0); GFR 9.3; PHOSPHORUS 3.5 mg/dL (2.6-4.7); POTASSIUM 4.1 mmol/L (3.5-5.1)
[2016-12-09] MEDS ORDERED: IV NORMAL SALINE 1000ML BAG 1,000 ML IV PRN (09:33)
--- NOTE | 2016-12-09 09:43 | PDOC ---
Dialysis Progress Note Dialysis Note Dialysis Note Seen on Hemodialysis, tolerating treatment Well Vitals on Hemodialysis: 152/94 86 afeb 16 General Appearance: Awake: Alert Oriented x 2 Neck: No JVD or JVP Chest: CTA Serafin - rare rales RLL Heart: S1 S2; sys murmur Abdomen - Soft NTND Extremities - No Edema ESRD: Dialysis as below F 180 NR 3.5 Hrs 3 K 2.5 Ca 140 Na 35 HC03 Qb 350 + Qd 500+ Heparin 0 Units Uf 3 Kgs or to dry weight as tolerated May give 25-50 gms of 25% Albumin if needed to maintain Hemodynamic stability Treatment plan reviewed and discussed with electronic test technician suspect CO2 retainer Vitals Vital Signs Vital Signs Date Time Temp Pulse Resp B/P Pulse Ox O2 Delivery O2 Flow Rate FiO2 12/09/16 07:16 94 Nasal Cannula 5.0 12/09/16 07:00 98.0 75 18 151/85 98.0 Labs Last Labs Laboratory Tests Test 12/07/16 10:10 12/07/16 12:10 12/08/16 04:30 12/09/16 08:15 Nasal Screen MRSA (PCR) Negative (Negative) O2 Saturation 97% (92-99) Arterial Blood pH 7.30 (7.35-7.45) Arterial Blood pCO2 at Patient Temp 53mmHg (35-46) Arterial Blood pO2 at Patient Temp 107mmHg (75-108) Arterial Blood HCO3 25mmol/L (21-28) Arterial Blood Base Excess -1mmol/L (-3-3) FiO2 35 Hemoglobin 8.7g/dL (12.0-15.5) 8.7g/dL (12.0-15.5) Sodium Level 137mmol/L (136-145) 133mmol/L (136-145) Potassium Level 4.5mmol/L (3.5-5.1) 4.1mmol/L (3.5-5.1) Chloride Level 96mmol/L (98-107) 93mmol/L (98-107) Carbon Dioxide Level 34mmol/L (21-32) 33mmol/L (21-32) Anion Gap 7 (6-14) 7 (6-14) Blood Urea Nitrogen 27mg/dL (7-20) 42mg/dL (7-20) Creatinine 3.7mg/dL (0.6-1.0) 4.9mg/dL (0.6-1.0) Estimated GFR (Cockcroft-Gault) 12.8 9.3 Glucose Level 96mg/dL (70-99) 96mg/dL (70-99) Calcium Level 9.4mg/dL (8.5-10.1) 9.5mg/dL (8.5-10.1) Phosphorus Level 3.9mg/dL (2.6-4.7) 3.5mg/dL (2.6-4.7) Magnesium Level 1.8mg/dL (1.8-2.4) Total Bilirubin 0.7mg/dL (0.2-1.0) Direct Bilirubin 0.2mg/dL (0.0-0.2) Aspartate Amino Transf (AST/SGOT) 18U/L (15-37) Alanine Aminotransferase (ALT/SGPT) 9U/L (14-59) Alkaline Phosphatase 80U/L (46-116) Total Protein 6.8g/dL (6.4-8.2) Albumin 3.0g/dL (3.4-5.0) 3.0g/dL (3.4-5.0) White Blood Count 6.1x10^3/uL (4.0-11.0) Red Blood Count 2.73x10^6/uL (3.50-5.40) Hematocrit 26.2% (36.0-47.0) Mean Corpuscular Volume 96fL (79-100) Mean Corpuscular Hemoglobin 32pg (25-35) Mean Corpuscular Hemoglobin Concent 33g/dL (31-37) Red Cell Distribution Width 18.7% (11.5-14.5) Platelet Count 123x10^3/uL (140-400) Neutrophils (%) (Auto) 66% (31-73) Lymphocytes (%) (Auto) 21% (24-48) Monocytes (%) (Auto) 9% (0-9) Eosinophils (%) (Auto) 3% (0-3) Basophils (%) (Auto) 1% (0-3) Neutrophils # (Auto) 4.0x10^3uL (1.8-7.7) Lymphocytes # (Auto) 1.3x10^3/uL (1.0-4.8) Monocytes # (Auto) 0.5x10^3/uL (0.0-1.1) Eosinophils # (Auto) 0.2x10^3/uL (0.0-0.7) Basophils # (Auto) 0.1x10^3/uL (0.0-0.2) Laboratory Tests Test 12/09/16 08:15 White Blood Count 6.1x10^3/uL (4.0-11.0) Red Blood Count 2.73x10^6/uL (3.50-5.40) Hemoglobin 8.7g/dL (12.0-15.5) Hematocrit 26.2% (36.0-47.0) Mean Corpuscular Volume 96fL (79-100) Mean Corpuscular Hemoglobin 32pg (25-35) Mean Corpuscular Hemoglobin Concent 33g/dL (31-37) Red Cell Distribution Width 18.7% (11.5-14.5) Platelet Count 123x10^3/uL (140-400) Neutrophils (%) (Auto) 66% (31-73) Lymphocytes (%) (Auto) 21% (24-48) Monocytes (%) (Auto) 9% (0-9) Eosinophils (%) (Auto) 3% (0-3) Basophils (%) (Auto) 1% (0-3) Neutrophils # (Auto) 4.0x10^3uL (1.8-7.7) Lymphocytes # (Auto) 1.3x10^3/uL (1.0-4.8) Monocytes # (Auto) 0.5x10^3/uL (0.0-1.1) Eosinophils # (Auto) 0.2x10^3/uL (0.0-0.7) Basophils # (Auto) 0.1x10^3/uL (0.0-0.2) Sodium Level 133mmol/L (136-145) Potassium Level 4.1mmol/L (3.5-5.1) Chloride Level 93mmol/L (98-107) Carbon Dioxide Level 33mmol/L (21-32) Anion Gap 7 (6-14) Blood Urea Nitrogen 42mg/dL (7-20) Creatinine 4.9mg/dL (0.6-1.0) Estimated GFR (Cockcroft-Gault) 9.3 Glucose Level 96mg/dL (70-99) Calcium Level 9.5mg/dL (8.5-10.1) Phosphorus Level 3.5mg/dL (2.6-4.7) Albumin 3.0g/dL (3.4-5.0) DOMINICK STEINER MD Dec 09, 2016 09:43
[2016-12-09] MEDS ORDERED: 0.9 % SODIUM CHLORIDE 10 ML DISP.SYRIN. IV PRN ×2 (09:45)
[2016-12-09] MEDS ORDERED: DIALYSIS PATIENT. MC PRN ×2 (09:45)
--- NOTE | 2016-12-09 10:53 | PDOC ---
PULMONARY PROGRESS NOTES Subjective feels better off BIPAP Vitals Vital Signs Date Time Temp Pulse Resp B/P Pulse Ox O2 Delivery O2 Flow Rate FiO2 12/09/16 08:00 Nasal Cannula 5.0 12/09/16 07:16 94 12/09/16 07:00 98.0 75 18 151/85 98.0 General: Alert, No acute distress Lungs: Wheezing (resolved), Other (decrease bs) Cardiovascular: S1, S2 Abdomen: Soft, Non-tender Neuro Exam: Alert Extremities: No Edema, Other Labs Laboratory Tests Test 12/07/16 12:10 12/08/16 04:30 12/09/16 08:15 O2 Saturation 97% (92-99) Arterial Blood pH 7.30 (7.35-7.45) Arterial Blood pCO2 at Patient Temp 53mmHg (35-46) Arterial Blood pO2 at Patient Temp 107mmHg (75-108) Arterial Blood HCO3 25mmol/L (21-28) Arterial Blood Base Excess -1mmol/L (-3-3) FiO2 35 Hemoglobin 8.7g/dL (12.0-15.5) 8.7g/dL (12.0-15.5) Sodium Level 137mmol/L (136-145) 133mmol/L (136-145) Potassium Level 4.5mmol/L (3.5-5.1) 4.1mmol/L (3.5-5.1) Chloride Level 96mmol/L (98-107) 93mmol/L (98-107) Carbon Dioxide Level 34mmol/L (21-32) 33mmol/L (21-32) Anion Gap 7 (6-14) 7 (6-14) Blood Urea Nitrogen 27mg/dL (7-20) 42mg/dL (7-20) Creatinine 3.7mg/dL (0.6-1.0) 4.9mg/dL (0.6-1.0) Estimated GFR (Cockcroft-Gault) 12.8 9.3 Glucose Level 96mg/dL (70-99) 96mg/dL (70-99) Calcium Level 9.4mg/dL (8.5-10.1) 9.5mg/dL (8.5-10.1) Phosphorus Level 3.9mg/dL (2.6-4.7) 3.5mg/dL (2.6-4.7) Magnesium Level 1.8mg/dL (1.8-2.4) 2.0mg/dL (1.8-2.4) Total Bilirubin 0.7mg/dL (0.2-1.0) Direct Bilirubin 0.2mg/dL (0.0-0.2) Aspartate Amino Transf (AST/SGOT) 18U/L (15-37) Alanine Aminotransferase (ALT/SGPT) 9U/L (14-59) Alkaline Phosphatase 80U/L (46-116) Total Protein 6.8g/dL (6.4-8.2) Albumin 3.0g/dL (3.4-5.0) 3.0g/dL (3.4-5.0) White Blood Count 6.1x10^3/uL (4.0-11.0) Red Blood Count 2.73x10^6/uL (3.50-5.40) Hematocrit 26.2% (36.0-47.0) Mean Corpuscular Volume 96fL (79-100) Mean Corpuscular Hemoglobin 32pg (25-35) Mean Corpuscular Hemoglobin Concent 33g/dL (31-37) Red Cell Distribution Width 18.7% (11.5-14.5) Platelet Count 123x10^3/uL (140-400) Neutrophils (%) (Auto) 66% (31-73) Lymphocytes (%) (Auto) 21% (24-48) Monocytes (%) (Auto) 9% (0-9) Eosinophils (%) (Auto) 3% (0-3) Basophils (%) (Auto) 1% (0-3) Neutrophils # (Auto) 4.0x10^3uL (1.8-7.7) Lymphocytes # (Auto) 1.3x10^3/uL (1.0-4.8) Monocytes # (Auto) 0.5x10^3/uL (0.0-1.1) Eosinophils # (Auto) 0.2x10^3/uL (0.0-0.7) Basophils # (Auto) 0.1x10^3/uL (0.0-0.2) Laboratory Tests Test 12/09/16 08:15 White Blood Count 6.1x10^3/uL (4.0-11.0) Red Blood Count 2.73x10^6/uL (3.50-5.40) Hemoglobin 8.7g/dL (12.0-15.5) Hematocrit 26.2% (36.0-47.0) Mean Corpuscular Volume 96fL (79-100) Mean Corpuscular Hemoglobin 32pg (25-35) Mean Corpuscular Hemoglobin Concent 33g/dL (31-37) Red Cell Distribution Width 18.7% (11.5-14.5) Platelet Count 123x10^3/uL (140-400) Neutrophils (%) (Auto) 66% (31-73) Lymphocytes (%) (Auto) 21% (24-48) Monocytes (%) (Auto) 9% (0-9) Eosinophils (%) (Auto) 3% (0-3) Basophils (%) (Auto) 1% (0-3) Neutrophils # (Auto) 4.0x10^3uL (1.8-7.7) Lymphocytes # (Auto) 1.3x10^3/uL (1.0-4.8) Monocytes # (Auto) 0.5x10^3/uL (0.0-1.1) Eosinophils # (Auto) 0.2x10^3/uL (0.0-0.7) Basophils # (Auto) 0.1x10^3/uL (0.0-0.2) Sodium Level 133mmol/L (136-145) Potassium Level 4.1mmol/L (3.5-5.1) Chloride Level 93mmol/L (98-107) Carbon Dioxide Level 33mmol/L (21-32) Anion Gap 7 (6-14) Blood Urea Nitrogen 42mg/dL (7-20) Creatinine 4.9mg/dL (0.6-1.0) Estimated GFR (Cockcroft-Gault) 9.3 Glucose Level 96mg/dL (70-99) Calcium Level 9.5mg/dL (8.5-10.1) Phosphorus Level 3.5mg/dL (2.6-4.7) Magnesium Level 2.0mg/dL (1.8-2.4) Albumin 3.0g/dL (3.4-5.0) Medications Active Scripts Medications Dose Route/Sig Days Date Category Lomotil Tablet (Diphenoxylate Hcl/Atropine) 1 Each Tablet 1 Each PO 12/07/16 Reported Oxybutynin Chloride Er (Oxybutynin Chloride) 5 Mg Tab.er.24 1 Tab PO DAILY 12/07/16 Reported Escitalopram Oxalate 10 Mg Tablet 1 Tab PO DAILY 12/07/16 Reported Compazine (Prochlorperazine Maleate) 5 Mg Tablet 5 Mg PO 12/07/16 Reported FENTANYL 50mcg/hr (Fentanyl) 1 Each Patch.td72 1 Patch TP Q3DAYS 11/08/16 Rx Lortab 5-325 mg Tablet (Hydrocodone/Acetaminophen) 1 Each Tablet 1 Tab PO Q4HRS PRN 11/08/16 Rx Alprazolam 1 Mg Tablet 0.5 Tab PO PRN BID PRN 11/08/16 Rx Magnesium (Magnesium Oxide) 400 Mg Capsule 1 Cap PO DAILY 11/03/16 Reported Guaifenesin Ac Cough Syrup (Guaifenesin/Codeine Phosphate) 473 Ml Liquid 5 Ml PO Q4HRS 10/22/16 Rx Keppra (Levetiracetam) 500 Mg Tablet 500 Mg PO BID 08/05/16 Rx Proair Hfa Inhaler (Albuterol Sulfate) 8.5 Gm Hfa.aer.ad 1 Puff INH PRN Q6HRS PRN 04/19/16 Reported Zofran (Ondansetron Hcl) 8 Mg Tablet 4 Mg PO 04/19/16 Reported Impression . 1. [id number] hypercapnic respiratory failure secondary to chronic obstructive pulmonary disease exacerbation and mild congestive heart failure. 2. Hypotension noticed during dialysis, now resolved. 3. History of small cell lung cancer, status post chemoradiation. Now with recurrent cancer in the lung along with mediastinal adenopathy and brain metastasis. Not on any treatment. 4. End-stage renal disease, on hemodialysis. 5. Panic disorder Plan . 1. nasal canula 2. DNR/DNI. 3. Follow chest x-ray as needed. 4. Hemodialysis per renal recommendations. 5. Recommended to discharge to back to home hospice, Discussed with RENETTA HAN MD Dec 09, 2016 10:53
--- NOTE | 2016-12-09 13:09 | PDOC3 ---
Discharge Summary Visit Information Date of Admission: Dec 07, 2016 Date of Discharge: Dec 09, 2016 Admitting Diagnosis: resp failure Admitting Diagnosis Comment: Final Diagnosis 1. [id number] hypercapnic respiratory failure secondary to chronic obstructive pulmonary disease exacerbation and mild congestive heart failure. 2. Hypotension on dialysis, n 3. History of small cell lung cancer, status post chemoradiation. 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 End-stage renal disease, on hemodialysis. 5. anxiety d/om adjustement 6, seizure d/o 7. metabolic encephalopathy, POA, resolved 8. CHF, acute on chronic diastolic w/ fluid overload, 9. anemia of CKD and disease, Problems Medical Problems: (1) Acute respiratory failure Status: Acute (2) Altered mental status Status: Acute Brief Hospital Course Allergies Allergies Coded Allergies Type Severity Reaction Last Updated Verified Penicillins Allergy Severe Anaphylaxis, tolerates MERREM 09/15/16 Yes topiramate Allergy Severe Anaphylaxis 04/20/16 Yes metoclopramide Allergy Intermediate rash 04/20/16 Yes prednisone Allergy Intermediate swelling 04/20/16 Yes tetanus and diphtheria toxoids Allergy Intermediate swelling 04/20/16 Yes Vital Signs Vital Signs Date Time Temp Pulse Resp B/P Pulse Ox O2 Delivery O2 Flow Rate FiO2 12/09/16 11:43 94 Nasal Cannula 5.0 12/09/16 07:00 98.0 75 18 151/85 98.0 Lab Results Laboratory Tests Test 12/08/16 04:30 12/09/16 08:15 Hemoglobin 8.7g/dL (12.0-15.5) 8.7g/dL (12.0-15.5) Sodium Level 137mmol/L (136-145) 133mmol/L (136-145) Potassium Level 4.5mmol/L (3.5-5.1) 4.1mmol/L (3.5-5.1) Chloride Level 96mmol/L (98-107) 93mmol/L (98-107) Carbon Dioxide Level 34mmol/L (21-32) 33mmol/L (21-32) Anion Gap 7 (6-14) 7 (6-14) Blood Urea Nitrogen 27mg/dL (7-20) 42mg/dL (7-20) Creatinine 3.7mg/dL (0.6-1.0) 4.9mg/dL (0.6-1.0) Estimated GFR (Cockcroft-Gault) 12.8 9.3 Glucose Level 96mg/dL (70-99) 96mg/dL (70-99) Calcium Level 9.4mg/dL (8.5-10.1) 9.5mg/dL (8.5-10.1) Phosphorus Level 3.9mg/dL (2.6-4.7) 3.5mg/dL (2.6-4.7) Magnesium Level 1.8mg/dL (1.8-2.4) 2.0mg/dL (1.8-2.4) Total Bilirubin 0.7mg/dL (0.2-1.0) Direct Bilirubin 0.2mg/dL (0.0-0.2) Aspartate Amino Transf (AST/SGOT) 18U/L (15-37) Alanine Aminotransferase (ALT/SGPT) 9U/L (14-59) Alkaline Phosphatase 80U/L (46-116) Total Protein 6.8g/dL (6.4-8.2) Albumin 3.0g/dL (3.4-5.0) 3.0g/dL (3.4-5.0) White Blood Count 6.1x10^3/uL (4.0-11.0) Red Blood Count 2.73x10^6/uL (3.50-5.40) Hematocrit 26.2% (36.0-47.0) Mean Corpuscular Volume 96fL (79-100) Mean Corpuscular Hemoglobin 32pg (25-35) Mean Corpuscular Hemoglobin Concent 33g/dL (31-37) Red Cell Distribution Width 18.7% (11.5-14.5) Platelet Count 123x10^3/uL (140-400) Neutrophils (%) (Auto) 66% (31-73) Lymphocytes (%) (Auto) 21% (24-48) Monocytes (%) (Auto) 9% (0-9) Eosinophils (%) (Auto) 3% (0-3) Basophils (%) (Auto) 1% (0-3) Neutrophils # (Auto) 4.0x10^3uL (1.8-7.7) Lymphocytes # (Auto) 1.3x10^3/uL (1.0-4.8) Monocytes # (Auto) 0.5x10^3/uL (0.0-1.1) Eosinophils # (Auto) 0.2x10^3/uL (0.0-0.7) Basophils # (Auto) 0.1x10^3/uL (0.0-0.2) Laboratory Tests Test 12/09/16 08:15 White Blood Count 6.1x10^3/uL (4.0-11.0) Red Blood Count 2.73x10^6/uL (3.50-5.40) Hemoglobin 8.7g/dL (12.0-15.5) Hematocrit 26.2% (36.0-47.0) Mean Corpuscular Volume 96fL (79-100) Mean Corpuscular Hemoglobin 32pg (25-35) Mean Corpuscular Hemoglobin Concent 33g/dL (31-37) Red Cell Distribution Width 18.7% (11.5-14.5) Platelet Count 123x10^3/uL (140-400) Neutrophils (%) (Auto) 66% (31-73) Lymphocytes (%) (Auto) 21% (24-48) Monocytes (%) (Auto) 9% (0-9) Eosinophils (%) (Auto) 3% (0-3) Basophils (%) (Auto) 1% (0-3) Neutrophils # (Auto) 4.0x10^3uL (1.8-7.7) Lymphocytes # (Auto) 1.3x10^3/uL (1.0-4.8) Monocytes # (Auto) 0.5x10^3/uL (0.0-1.1) Eosinophils # (Auto) 0.2x10^3/uL (0.0-0.7) Basophils # (Auto) 0.1x10^3/uL (0.0-0.2) Sodium Level 133mmol/L (136-145) Potassium Level 4.1mmol/L (3.5-5.1) Chloride Level 93mmol/L (98-107) Carbon Dioxide Level 33mmol/L (21-32) Anion Gap 7 (6-14) Blood Urea Nitrogen 42mg/dL (7-20) Creatinine 4.9mg/dL (0.6-1.0) Estimated GFR (Cockcroft-Gault) 9.3 Glucose Level 96mg/dL (70-99) Calcium Level 9.5mg/dL (8.5-10.1) Phosphorus Level 3.5mg/dL (2.6-4.7) Magnesium Level 2.0mg/dL (1.8-2.4) Albumin 3.0g/dL (3.4-5.0) Brief Hospital Course Ms. Torres is a 51 old on hospice, still getting HD for ESRD, has lung cancer, admit fro resp failure, vol overload, CHF exac, acute diastolic better with Bipap then HD requested DC at 48 hours HD daily done, then resume 3x./week [facility] DNR/DNI. discharge to back to home hospice, Discussed with social work Discharge Information Condition at Discharge: Stable Disposition/Orders: D/C to Home w/ Hospice Scheduled Escitalopram Oxalate (Escitalopram Oxalate) 1 TAB PO DAILY (Reported) Fentanyl (FENTANYL 50mcg/hr) 1 PATCH TP Q3DAYS Guaifenesin/Codeine Phosphate (Guaifenesin Ac Cough Syrup) 5 ML PO Q4HRS Levetiracetam (Keppra) 500 MG PO BID Magnesium Oxide (Magnesium) 1 CAP PO DAILY (Reported) Oxybutynin Chloride (Oxybutynin Chloride Er) 1 TAB PO DAILY (Reported) Scheduled PRN Albuterol Sulfate (Proair Hfa Inhaler) 1 PUFF INH PRN Q6HRS PRN PRN SHORTNESS OF BREATH (Reported) Alprazolam (Alprazolam) 0.5 TAB PO PRN BID PRN PRN ANXIETY / AGITATION Hydrocodone/Acetaminophen (Lortab 5-325 mg Tablet) 1 TAB PO Q4HRS PRN PRN PAIN Miscellaneous Medications Diphenoxylate Hcl/Atropine (Lomotil Tablet) 1 EACH PO (Reported) Ondansetron Hcl (Zofran) 4 MG PO (Reported) Prochlorperazine Maleate (Compazine) 5 MG PO (Reported) Discontinued Medications Amlodipine Besylate (Amlodipine Besylate) 5 MG PO BID (Reported) Cefpodoxime Proxetil (Cefpodoxime Proxetil) 1 TAB PO BID (Reported) Darbepoetin Con in Polysorbat (Aranesp) 60 MCG IJ WEEKLY (Reported) Escitalopram Oxalate (Escitalopram Oxalate) 1 TAB PO DAILY (Reported) Hydrocodone Bit/Acetaminophen (Hydrocodone-Apap 5-325 ) 1 TAB PO PRN Q6HRS PRN PRN PAIN (Reported) Omeprazole (Omeprazole) 40 MG PO BID (Reported) Oxybutynin Chloride (Oxybutynin Chloride Er) 1 TAB PO DAILY (Reported) Promethazine Hcl (Promethazine Hcl) 2 TAB PO Q6HRS PRN PRN NAUSEA/VOMITING ( Reported) Sumatriptan Succinate (Sumatriptan Succinate) 100 MG PO 1-2tabs po PRN PRN MIGRAINE HEADACHE (Reported) Patient Instructions Patient Instructions time > 35min ZBIGNIEW BRONSON MD Dec 09, 2016 13:09
== END 2016-12-09 15:20 | disposition hospice, home (50) | DRG 291 ==
LOC: 1 WEST ICU 08:53 → 4 NORTH 12-08 18:58
PROVIDERS: ADMIT Internal Medicine; ATTEND Internal Medicine
PROC: 5A09357 Assistance with Respiratory Ventilation, Less than 24 Consecutive Hours, Continuous Positive Airway Pressure (ICD-10-PCS; principal; 2016-12-07)
PROC: 5A1D60Z (ICD-10-PCS; 2016-12-07)
DX: I13.2 Hypertensive heart and chronic kidney disease with heart failure and with stage 5 chronic kidney disease, or end stage renal disease (principal); J96.22 Acute and chronic respiratory failure with hypercapnia; G93.41 Metabolic encephalopathy; I50.33 Acute on chronic diastolic (congestive) heart failure; N18.6 End stage renal disease; J96.21 Acute and chronic respiratory failure with hypoxia; Z66 Do not resuscitate; M19.90 Unspecified osteoarthritis, unspecified site; E78.5 Hyperlipidemia, unspecified; F32.9 Major depressive disorder, single episode, unspecified; E21.3 Hyperparathyroidism, unspecified; J44.1 Chronic obstructive pulmonary disease with (acute) exacerbation; E87.2 Acidosis; C79.31 Secondary malignant neoplasm of brain; I12.0 Hypertensive chronic kidney disease with stage 5 chronic kidney disease or end stage renal disease; K21.9 Gastro-esophageal reflux disease without esophagitis; D63.1 Anemia in chronic kidney disease; E11.22 Type 2 diabetes mellitus with diabetic chronic kidney disease; F41.0 Panic disorder [episodic paroxysmal anxiety]; G40.909 Epilepsy, unspecified, not intractable, without status epilepticus; I95.3 Hypotension of hemodialysis; Z99.2 Dependence on renal dialysis; Z92.21 Personal history of antineoplastic chemotherapy; Z88.0 Allergy status to penicillin; Z88.7 Allergy status to serum and vaccine; Z85.118 Personal history of other malignant neoplasm of bronchus and lung; Z87.891 Personal history of nicotine dependence; Z88.8 Allergy status to other drugs, medicaments and biological substances; Z90.710 Acquired absence of both cervix and uterus
CPT/HCPCS: 36415; 36600; 71020; 80069; 80076; 82805; 83735; 85018; 85027; 86850; 86900; 86901; 86920; 87641; 94640; 94660; 94760; J7620; P9016